=== PATIENT | female | born 1955 | race Caucasian/White ===

== ENCOUNTER 2021-09-11 14:37 | Inpatient (IN) | payer BC, OTHER ==
[~2021-09-11] VITALS: Ht 162.6 cm; Wt 53.5 kg
[2021-09-11 14:37] VITALS: BP_SYST 150
--- NOTE | 2021-09-11 14:43 | NUR ---
Patient to ER bed 02 to gown for evaluation. Side rails up.
[2021-09-11] MEDS ORDERED: IPRATROPIUM BROM 0.5 MG/2.5 ML VIAL.NEB (ATROVENT) INH ONE (15:00)
[2021-09-11] MEDS ORDERED: ALBUTEROL SULFATE 0.083% 2.5 MG/3 ML VIAL.NEB INH ONE (15:00)
--- NOTE | 2021-09-11 15:19 | NUR ---
Sophie [facility] Care nurse Zoe called to verify Phyllis Woodruff in ER . verified.
[2021-09-11 15:21] LABS: BASOPHILS # (AUTO) 0.1 K/uL (0.0-0.2); BASOPHILS % (AUTO) 0.8 % (0.0-2.0); EOSINOPHILS # (AUTO) 0.1 K/uL (0.0-0.4); EOSINOPHILS % (AUTO) 1.3 % (0.0-4.0); HEMATOCRIT 30.9 % (36-48); HEMOGLOBIN 10.5 g/dL (12.0-16.0); LYMPHOCYTES # (AUTO) 2.5 K/uL (1.0-5.5); LYMPHOCYTES % (AUTO) 23.6 % (20.5-51.5); MEAN CORPUSCULAR HEMOGLOBIN 29 pg (27-31); MEAN CORPUSCULAR HGB CONC 34 % (32-36); MEAN CORPUSCULAR VOLUME 85 fL (79.0-98.0); MONOCYTES # (AUTO) 1.1 K/uL (0.0-1.0); MONOCYTES % (AUTO) 10.7 % (1.7-9.3); NEUTROPHILS # (AUTO) 6.8 K/uL (1.8-7.7); NEUTROPHILS % (AUTO) 63.6 % (40.0-70.0); PLATELET COUNT (AUTO) 271 K/uL (130-430); RED BLOOD CELL COUNT(AUTO) 3.64 MIL/uL (4.2-6.2); RED CELL DISTRIBUTION WIDTH 14.8 % (9.0-15.0); WHITE BLOOD COUNT (AUTO) 10.6 K/uL (4.8-10.8)
[2021-09-11 15:41] LABS: ANION GAP 8 (5-15); CALCIUM 8.8 mg/dL (8.4-11.0); CHLORIDE 100 mmol/L (98-107); CREATININE 1.11 mg/dL (0.55-1.30); GLUCOSE 103 mg/dL (70-99); POTASSIUM 3.7 mmol/L (3.5-5.1); SODIUM SERUM 135 mmol/L (136-145); UREA NITROGEN, BLOOD 10 mg/dL (8-21)
--- NOTE | 2021-09-11 15:47 | NUR ---
covid swab done at bedside
[2021-09-11 16:11] LABS: ALANINE AMINOTRANSFERASE 18 U/L (12-78); ALBUMIN 2.7 g/dL (3.4-4.8); ASPARTATE AMINOTRANSFERASE 9 U/L (10-37); TOTAL BILIRUBIN 0.3 mg/dL (0.0-1.0)
[2021-09-11 16:15] LABS: GFR AFRICAN AMERICAN 63 mL/min (>90)
--- NOTE | 2021-09-11 16:33 | NUR ---
Notified ED Admitting regarading Dr. Larios's request for admission/transfer. Per Dr. Larios, pt is stable for transfer. Will contact insurance premium auditor regarding this matter. PER FACESHEET: MINDY OLIVARES
[2021-09-11] MEDS ORDERED: ALPRAZolam 0.25 MG TABLET PO ONE (17:00)
--- NOTE | 2021-09-11 17:37 | NUR ---
MD ordered BC and Levaquin when they are done.
[2021-09-11 17:39] LABS: INR 0.9 (0.8-1.2); PROTHROMBIN TIME 8.9 SECS (9.5-12.5)
--- NOTE | 2021-09-11 17:41 | NUR ---
Pt resting quietly. VSS, xanax helped per patient. Awaiting admission.
--- NOTE | 2021-09-11 17:54 | NUR ---
CB COMMODITY SUPERVISOR CALLED BACK AND STATED WE CAN ADMIT PT AND REQUESTED FAX OF FACESHEET AND CLINICALS. SPOKE TO SISSY FAX: [phone]
--- NOTE | 2021-09-11 17:58 | NUR ---
Dr. Larios called Dr. Mcknight for admission on personal cell
--- NOTE | 2021-09-11 18:40 | NUR ---
Admit bed requested Patient will be admitted to care of . Admitted to MEDSURG unit. Diagnosis COPD EXACERBATION Inpatient (Yes or No) YES Observation (Yes or No) NO Orientation concerns or request close to nursing station (Yes or No) NO Covid Status NEG On vent or bipap NO Isolation requirements NO Needs a sitter NO From Home (Yes or if No enter name of facility) NO Requires Dialysis (Yes or No) NO Med Rec Completed (Yes of No) YES
[2021-09-11] MEDS ORDERED: OLAN2.5T29 PO (18:59)
[2021-09-11] MEDS ORDERED: GUAI600T86 (18:59)
[2021-09-11] MEDS ORDERED: BUDE10.26 IH (18:59)
[2021-09-11] MEDS ORDERED: MULT-1089 PO (19:00)
[2021-09-11] MEDS ORDERED: ENOX40DI8 SQ (19:00)
[2021-09-11] MEDS ORDERED: ALBMDI INH (19:00)
[2021-09-11] MEDS ORDERED: PANT40GR PO (19:00)
[2021-09-11] MEDS ORDERED: BUSP5TAB3 PO (19:00)
[2021-09-11] MEDS ORDERED: INSU100V42 (19:00)
[2021-09-11] MEDS ORDERED: SERT25TA77 PO (19:00)
[2021-09-11] MEDS ORDERED: POLY17PO20 PO (19:00)
--- NOTE | 2021-09-11 19:16 | NUR ---
Report to Rhea DIAZ.
--- NOTE | 2021-09-11 19:21 | NUR ---
Pt A&Ox4,VSS, respirations even and unlabored, cap refill <3.
--- NOTE | 2021-09-11 21:45 | NUR ---
Pt transfered to hospital bed, pt A&Ox4, VSS
--- NOTE | 2021-09-11 21:55 | NUR ---
Report given to Ankit DIAZ
[2021-09-11 22:00] VITALS: BP_SYST 132
[2021-09-11] MEDS ORDERED: DEXTROSE 50% JECT 50 ML DISP.SYRIN IVP PRN (22:00)
[2021-09-11] MEDS ORDERED: BUDESONIDE/FORMOTEROL 160-4.5 mCg, 6 GM INHALER INH SCH (22:00)
[2021-09-11] MEDS ORDERED: methylPREDNISolone SOD SUCC/PF 62.5 MG/ML VIAL IVP SCH (22:00)
[2021-09-11] MEDS ORDERED: BUDESONIDE 0.5 MG/2 ML AMPUL.NEB ONE (22:49)
[2021-09-11] MEDS ORDERED: ONDANSETRON HCL 4 MG/2 ML VIAL IVP PRN (23:00)
[2021-09-11] MEDS ORDERED: NALOXONE HCL 0.4 MG/ML AMP (NARCAN) IVP PRN (23:00)
[2021-09-11] MEDS ORDERED: ACETAMINOPHEN 325 MG TABLET PO PRN (23:00)
[2021-09-12] VITALS (10 sets, daily range): BP systolic 127–178
[2021-09-12] MEDS: TEMAZEPAM 15 MG CAPSULE PO PRN ×3 (00:24→21:52)
[2021-09-12] MEDS: ALBUTEROL SULFATE 0.083% 2.5 MG/3 ML VIAL.NEB INH SCH ×4 (01:00→23:07)
--- NOTE | 2021-09-12 06:47 | NUR ---
NOÉ BAIG (NOTED NEXT OF KIN IN PATIENT DATA) CALLED. ADV PATIENT IS ADMTED.
[2021-09-12 06:54] LABS: BASOPHILS % (AUTO) 0.3 % (0.0-2.0); EOSINOPHILS % (AUTO) 0.3 % (0.0-4.0); HEMATOCRIT 30.9 % (36-48); HEMOGLOBIN 10.6 g/dL (12.0-16.0); LYMPHOCYTES # (AUTO) 0.5 K/uL (1.0-5.5); LYMPHOCYTES % (AUTO) 4.5 % (20.5-51.5); MEAN CORPUSCULAR HEMOGLOBIN 29 pg (27-31); MEAN CORPUSCULAR HGB CONC 34 % (32-36); MEAN CORPUSCULAR VOLUME 85 fL (79.0-98.0); MONOCYTES # (AUTO) 0.2 K/uL (0.0-1.0); MONOCYTES % (AUTO) 1.5 % (1.7-9.3); NEUTROPHILS # (AUTO) 9.9 K/uL (1.8-7.7); NEUTROPHILS % (AUTO) 93.4 % (40.0-70.0); PLATELET COUNT (AUTO) 278 K/uL (130-430); RED BLOOD CELL COUNT(AUTO) 3.64 MIL/uL (4.2-6.2); RED CELL DISTRIBUTION WIDTH 14.6 % (9.0-15.0); WHITE BLOOD COUNT (AUTO) 10.6 K/uL (4.8-10.8)
[2021-09-12] MEDS: busPIRone HCL 5 MG TABLET PO SCH ×3 (07:00→16:06)
[2021-09-12 07:06] LABS: TOTAL IRON BIND. CAPACITY 279 ug/dL (250-450)
[2021-09-12 07:11] LABS: CREATININE 0.7 mg/dL (0.55-1.30); POTASSIUM 4.1 mmol/L (3.5-5.1)
--- NOTE | 2021-09-12 08:21 | NUR ---
I had the patient yesterday, and she recognized me. Happy that she was able to get a room with a tv. Explained that we were still waiting for a room in the hospital. Patient has an adjustable hospital bed. Denies any pain. Noted to have slight wheezes prior to RT treatment. Patient let me know that she had to go to the bathroom- unhooked patient from the monitor and was able to ambulate to the bathroom: gait steady, no problems noted. Will continue to monitor.
[2021-09-12] MEDS ORDERED: INSULIN REGULAR, HUMAN 10 UNITS/0.1 ML INJ ONE (08:40)
[2021-09-12] MEDS: INSULIN REGULAR, HUMAN 100 UNITS/ML, 10 ML VIAL (humuLIN R) SUBCUT PRN ×2 (08:41→20:23)
--- NOTE | 2021-09-12 08:49 | NUR ---
Patient given mechanical soft diet. Tolerating it well.
[2021-09-12] MEDS ORDERED: PANTOPRAZOLE GRANULES PACKET 40 MG PO SCH (09:00)
[2021-09-12] MEDS: POLYETHYLENE GLYCOL 3350, 17 GM/ POWD.PACK PO SCH (09:00)
[2021-09-12] MEDS ORDERED: MULTIVITAMINS TAB 1 TABLET PO SCH (09:00)
--- NOTE | 2021-09-12 09:16 | NUR ---
Dr. Mcknight at bedside with patient. Stated that she looked better.
[2021-09-12] MEDS: BUDESONIDE 0.5 MG/2 ML AMPUL.NEB INH SCH ×2 (09:17→23:07)
[2021-09-12] MEDS ORDERED: ONDANSETRON HCL 4 MG/2 ML VIAL ONE (09:56)
[2021-09-12] MEDS: LACTOBACILLUS RHAMNOSUS GG 1 CAP CAPSULE PO SCH ×2 (10:48→20:12)
[2021-09-12] MEDS: guaiFENesin ER 600 MG TAB PO SCH ×2 (10:49→20:12)
[2021-09-12] MEDS: PANTOPRAZOLE SODIUM 40 MG TAB PO SCH (10:50)
[2021-09-12] MEDS: MULTIVITS,CA,MINERALS/IRON/FA 1 TABLET PO SCH (10:52)
[2021-09-12] MEDS: CHOLECALCIFEROL (VITAMIN D3) 2,000 UNIT TABLET PO SCH (10:53)
[2021-09-12] MEDS: SERTRALINE HCL 50 MG TABLET PO SCH (10:54)
[2021-09-12] MEDS: OLANZapine 2.5 MG TABLET PO SCH ×2 (10:54→20:12)
[2021-09-12] MEDS: METHYLPREDNISOLONE SOD SUCC 40 MG/ML VIAL IVP SCH ×2 (10:55→20:13)
[2021-09-12] MEDS: SOD FERRIC GLUC COMPLEX/SUC 125 MG in NS 100 ML IV SCH (11:21)
[2021-09-12] MEDS: ENOXAPARIN SODIUM 40 MG/0.4 ML SYRINGE SQ SCH (11:24)
[2021-09-12] MEDS ORDERED: ALBUTEROL SULFATE 0.083% 2.5 MG/3 ML VIAL.NEB INH ONE ×3 (12:33→12:49)
[2021-09-12] MEDS ORDERED: IPRATROPIUM BROM 0.5 MG/2.5 ML VIAL.NEB (ATROVENT) INH ONE ×2 (12:45→12:50)
[2021-09-12] MEDS ORDERED: METHYLPREDNISOLONE SOD SUCC 40 MG/ML VIAL IVP ONE (12:45)
--- NOTE | 2021-09-12 12:45 | NUR ---
MD aware that patient working harder to breath- RT aware. Spoke c MD- at bedside. Told RT that we needed to start Bipap and continious albuterol treatment.
--- NOTE | 2021-09-12 12:52 | NUR ---
Rhea DIAZ aware that pt will be upgraded to ICU.
--- NOTE | 2021-09-12 12:59 | NUR ---
Bipap 10/5 30% Rate 20
[2021-09-12] MEDS ORDERED: NACL 0.9% 1,000 ML IV ONE (13:00)
--- NOTE | 2021-09-12 13:04 | NUR ---
RESPIRATORY NOTES. @1225 PT WAS SOB DUE TO USING THE RESTROOM. AFTER MEDICATION WAS GIVEN TO PT, SHE WAS STILL HAVING SOB. DR. CARDONA GAVE ORDERS FOR FOLLOW UP BREATHING TX AND TO PUT PT ON BIPAP. PT IS ON BIPAP 12/01 RATE 20 30%. WILL CONTINUE TO MONITOR. Addendum: 09/12/21 at 1316 by Carol Babcock RT Amended: Links added.
[2021-09-12] MEDS ORDERED: methylPREDNISolone SOD SUCC/PF 62.5 MG/ML VIAL ONE (13:08)
--- NOTE | 2021-09-12 14:50 | NUR ---
RECEIVED PT FROM ED
--- NOTE | 2021-09-12 15:18 | NUR ---
SPOKE WITH DR HERNANDEZ ADVISED ON BIPAP: IPAP AT 10 EPAP AT 5 30% FI02 AND SATTING 96%. ORDERED ABG.
--- NOTE | 2021-09-12 15:23 | NUR ---
Called Dr. Ibrahim with a consult, he is aware.
--- NOTE | 2021-09-12 16:19 | NUR ---
SPOKE WITH DR HERNANDEZ. ADVISED ABG RESULTS: PH 7.515, C02 29.8, P02 87.1, HC03 23.5 OXYGEN SAT 97.3 AND SBP IN 170'S AND HR IN 115'S. ORDERED TO D/C BIPAP, PLACE ON OXYMIZER AT 6LPM AND THEN TO TITRATE DOWN TO 3LPM. RT HAS BEEN ADVISED. ALSO ORDERED CLONIDINE 0.1 MG PO Q6HRS PRN FOR SBP >150.
--- NOTE | 2021-09-12 16:49 | NUR ---
1645 PLACED PT ON 6L OXYMIZER PER DR BULLARD. SAT96% HR 96 RR18, WILL CONT TO GOPAL. Addendum: 09/12/21 at 1650 by Brianna Jang RT Amended: Links added.
[2021-09-12] MEDS: HYDROcodone/ACETAMIN 5-325 MG TAB (NORCO/ VICODIN) PO PRN (17:12)
[2021-09-12] MEDS: cloNIDine HCL 0.1 MG TABLET PO PRN (17:36)
[2021-09-12] MEDS: LEVOFLOXACIN 250 MG/D5W 100 ML IV SCH (18:00)
[2021-09-12] MEDS ORDERED: IPRATROPIUM/ALBUTEROL SULFATE 3 ML AMPUL.NEB (DUONEB) INH SCH (19:15)
[2021-09-13] VITALS (23 sets, daily range): BP systolic 99–183
[2021-09-13] MEDS: busPIRone HCL 5 MG TABLET PO SCH ×3 (05:32→17:08)
[2021-09-13 06:53] LABS: BASOPHILS % (AUTO) 0.2 % (0.0-2.0); HEMATOCRIT 27.9 % (36-48); HEMOGLOBIN 9.8 g/dL (12.0-16.0); LYMPHOCYTES # (AUTO) 0.7 K/uL (1.0-5.5); LYMPHOCYTES % (AUTO) 6.4 % (20.5-51.5); MEAN CORPUSCULAR HEMOGLOBIN 30 pg (27-31); MEAN CORPUSCULAR HGB CONC 35 % (32-36); MEAN CORPUSCULAR VOLUME 84 fL (79.0-98.0); MONOCYTES # (AUTO) 0.6 K/uL (0.0-1.0); MONOCYTES % (AUTO) 5.4 % (1.7-9.3); NEUTROPHILS # (AUTO) 10.1 K/uL (1.8-7.7); PLATELET COUNT (AUTO) 295 K/uL (130-430); RED BLOOD CELL COUNT(AUTO) 3.32 MIL/uL (4.2-6.2); RED CELL DISTRIBUTION WIDTH 14.7 % (9.0-15.0); WHITE BLOOD COUNT (AUTO) 11.5 K/uL (4.8-10.8)
[2021-09-13 06:56] LABS: CALCIUM 8.9 mg/dL (8.4-11.0); CREATININE 0.58 mg/dL (0.55-1.30); POTASSIUM 4.2 mmol/L (3.5-5.1)
--- NOTE | 2021-09-13 08:00 | NUR ---
AM ASSESSMENT PT ALERT, ABLE TO EXPRESS BASIC NEEDS, ASSISTED TO THE COMMODE, PERINEAL WIPES PROVIDED, PT HAD A BOWEL MOVEMENT. LED BACK TO THE BED. ATTEMPTED TO FLUSH SALINE LOCK IN RIGHT HAND, IV LEAKED OUT AND D/CD. NEW IV INSERTED INTO RIGHT FOREARM USING 22 GAUGE CATHETER WITH GOOD BLOOD RETURN.
[2021-09-13] MEDS: IPRATROPIUM/ALBUTEROL SULFATE 3 ML AMPUL.NEB (DUONEB) INH SCH ×4 (08:08→19:57)
[2021-09-13] MEDS: BUDESONIDE 0.5 MG/2 ML AMPUL.NEB INH SCH ×2 (08:08→19:57)
[2021-09-13] MEDS: ALBUTEROL SULFATE 0.083% 2.5 MG/3 ML VIAL.NEB INH SCH ×2 (08:13→14:10)
[2021-09-13] MEDS: ENOXAPARIN SODIUM 40 MG/0.4 ML SYRINGE SQ SCH (08:33)
[2021-09-13] MEDS: guaiFENesin ER 600 MG TAB PO SCH ×2 (08:34→21:23)
[2021-09-13] MEDS: METHYLPREDNISOLONE SOD SUCC 40 MG/ML VIAL IVP SCH ×4 (08:34→21:24)
[2021-09-13] MEDS: MULTIVITS,CA,MINERALS/IRON/FA 1 TABLET PO SCH (08:34)
[2021-09-13] MEDS: SERTRALINE HCL 50 MG TABLET PO SCH (08:34)
[2021-09-13] MEDS: LACTOBACILLUS RHAMNOSUS GG 1 CAP CAPSULE PO SCH ×2 (08:34→21:23)
[2021-09-13] MEDS: PANTOPRAZOLE SODIUM 40 MG TAB PO SCH (08:35)
[2021-09-13] MEDS: OLANZapine 2.5 MG TABLET PO SCH ×2 (08:35→21:23)
[2021-09-13] MEDS: CHOLECALCIFEROL (VITAMIN D3) 2,000 UNIT TABLET PO SCH (08:35)
[2021-09-13] MEDS: POLYETHYLENE GLYCOL 3350, 17 GM/ POWD.PACK PO SCH (08:35)
[2021-09-13] MEDS: SOD FERRIC GLUC COMPLEX/SUC 125 MG in NS 100 ML IV SCH (09:25)
[2021-09-13] MEDS: HYDROcodone/ACETAMIN 5-325 MG TAB (NORCO/ VICODIN) PO PRN (09:26)
[2021-09-13] MEDS ORDERED: DOCUSATE SODIUM 100 MG CAPSULE PO ONE (10:45)
--- NOTE | 2021-09-13 12:05 | NUR ---
MONITORING ANALYST WALDEMAR Mota responded to a generated social service support referral. SLURRY MIXER consulted with assigned COPYWRITER Kayley who shared patients caregiver Noé is requesting information/resources for additional caregiving support. SLURRY MIXER Svetlana met with patient at bedside. Patient was awake, alert and oriented to self but unable to state place and time SLURRY MIXER completed introductions, reason for referral and provided business card. Patient was open to contact. SLURRY MIXER made attempts to engage patient, but when SLURRY MIXER posed questions patient would say I dont remember. Patient was not oriented to place and when SLURRY MIXER informed her of facility she was not able to remember how she arrived at facility, nor was she able to recall being placed in [facility]. Patient shared she was a smoker and smoked about a pack a week. She also expressed feeling anxious at this time. Patient requested that SLURRY MIXER contact roommate Noé to obtain information because she cant remember, and he helps me with everything I need. CONTACT WITH PATIENTS CONTACT NOÉ BECKER SLURRY MIXER Svetlana contacted patients roommate Noé. He shares patient does have an adult son, Angel, but he shared holds Power of Electronics Hardware Design Engineer for patient. He has been living in Patients home and supporting her for 7 years. Current concern- Noé expressed difficulties with caring for patient due to her getting worse. He is requesting resource for caregivers and/or assisted living. Income- Patient currently receives SSI of about $2,400 a month. Noé states he feels patient may benefit for additional caregiving or placement in assisted living due to her increasing memory impairments. According to Noé, patient has not smoked for 2 years. He provides transportation and coordinates all of patients healthcare needs at this time. Noé confirmed patient was placed in [facility] prior to admission to this facility, but does not want to her to return due to running a scam on us for the past 2 months. According to him, they were not informed of COVID outbreak and he is concerned due to her history of COPD. SLURRY MIXER requested POA documents and provided fax number to Noé Plan- SLURRY MIXER will provide resources for assisted living and caregivers at patients bedside
[2021-09-13] MEDS: LORazepam 1 MG TABLET PO PRN (13:47)
--- NOTE | 2021-09-13 14:31 | NUR ---
Pt calling very frequently for caffeine, tea, coffee. She has had approximately 10 cups since this AM. She has been complaining of increasing anxiety for the past hour. Pt was recently medicated with Ativan. She is calling and asking for more anxiety medication. I informed the pt that all her coffee and tea is not helping her feelings of anxiety. She told me she has been requesting decaffeinated drinks. I informed her I am the one that has been answering her call light all day and not once has she said decaf. I suggested she stop drinking tea/coffee for today to see if that helps and we will switch her drinks to decalf. ST on monitor 107 BP 146/71, RR 30 and 02 sats 94% on oxygen. Pt is agreeable to the plan.
[2021-09-13] MEDS: INSULIN REGULAR, HUMAN 100 UNITS/ML, 10 ML VIAL (humuLIN R) SUBCUT PRN ×2 (17:25→21:34)
--- NOTE | 2021-09-13 17:43 | NUR ---
Pt calling to use BSC. Pt is confused and SOB. Didn't listen to request to stay in bed and scrambled to BSC. Pt touching urine soaked sheets with her fingers after being asked not to and then wiping her face with her fingers. Stands up from BSC and attempts to help make the bed and requested to sit back down on the BSC. Audible wheezing heard while standing at bedside. RR 34 HR 133. 02 sats 94%. Bedside RN came into the room with vein finder to start another IV after pt was settled back into bed.
--- NOTE | 2021-09-13 17:45 | NUR ---
IV SALINE LOCK IN RIGHT FOREARM D/CD, SITE SWOLLEN. NEW IV INSERTED INTO RIGHT HAND, 22 GAUGE CATHETER, GOOD BLOOD RETURN NOTED.
[2021-09-13] MEDS: LEVOFLOXACIN 250 MG/D5W 100 ML IV SCH (18:11)
[2021-09-13] MEDS: cloNIDine HCL 0.1 MG TABLET PO PRN (18:18)
[2021-09-13] MEDS: TEMAZEPAM 15 MG CAPSULE PO PRN (21:23)
[2021-09-14] VITALS: BP_SYST 127
[2021-09-14] MEDS: IPRATROPIUM/ALBUTEROL SULFATE 3 ML AMPUL.NEB (DUONEB) INH SCH ×7 (01:00→19:46)
--- NOTE | 2021-09-14 04:00 | NUR ---
OPENING NOTE PT AOX2 ABLE TO EXPRESS BASIC NEEDS. PT ON OXYMIZER AT 3L AND ON TELE. TELE IS SR TO ST WITH OCC PVC. IV RIGHT FOREARM USING 22 G PATENT AND FLUSH. PT ORIENTED TO UNIT AND ALL SAFETY PRECAUTIONS ARE IN PLACE. PT ANXIOUS ABOUT THE MOVE FROM ICU TO TELE.
--- NOTE | 2021-09-14 04:15 | NUR ---
ATIVAN PT STILL C/O ANXIETY AND PRN WAS GIVEN TO HELP
--- NOTE | 2021-09-14 04:15 | NUR ---
SOB/ANXIETY PT WAS ON OXYMIZER AT 3L AND WITH INCREASE ANXIETY PT IS FEELING SOB. RESP CALLED AND OXYMIZER INCREASED TO 5L
--- NOTE | 2021-09-14 05:00 | NUR ---
MUKESH PT GIVEN BUSOLVIN @ 0500 C/O OF ANXIETY AND REORTS THAT SHE TAKES THE MEDICATION NEEDED AT HOME.
[2021-09-14] MEDS: METHYLPREDNISOLONE SOD SUCC 40 MG/ML VIAL IVP SCH ×4 (05:19→22:45)
[2021-09-14] MEDS: busPIRone HCL 5 MG TABLET PO SCH ×3 (05:22→16:40)
--- NOTE | 2021-09-14 05:30 | NUR ---
ANXIETY PT REPORT STILL HAVING ANXIETY AND REQUESTED HER BUSPAR. BUSPAR WAS GIVEN
[2021-09-14] MEDS ORDERED: COMMUNICATION ORDER XX ONE (05:45)
--- NOTE | 2021-09-14 06:00 | NUR ---
BLOOD SUGAR BS WAS 147 PT REQUIRED NO COVERAGE
--- NOTE | 2021-09-14 07:15 | NUR ---
OPENING NOTE RECEIVED SBAR FROM NIGHT RN, PATIENT IN BED, RESPIRATIONS EVEN, NON LABORED, BED IN LOW AND LOCKED POSITION, CALL LIGHT WITHIN REACH, BED ALARM ON
[2021-09-14 08:00] VITALS: BP_SYST 146
[2021-09-14] MEDS: BUDESONIDE 0.5 MG/2 ML AMPUL.NEB INH SCH ×2 (09:03→19:46)
[2021-09-14] MEDS: POLYETHYLENE GLYCOL 3350, 17 GM/ POWD.PACK PO SCH (09:43)
[2021-09-14] MEDS: ENOXAPARIN SODIUM 40 MG/0.4 ML SYRINGE SQ SCH (09:43)
[2021-09-14] MEDS: OLANZapine 2.5 MG TABLET PO SCH ×2 (09:44→20:44)
[2021-09-14] MEDS: SERTRALINE HCL 50 MG TABLET PO SCH (09:44)
[2021-09-14] MEDS: MULTIVITS,CA,MINERALS/IRON/FA 1 TABLET PO SCH (09:44)
[2021-09-14] MEDS: DOCUSATE SODIUM 100 MG CAPSULE PO SCH (09:45)
[2021-09-14] MEDS: CHOLECALCIFEROL (VITAMIN D3) 2,000 UNIT TABLET PO SCH (09:45)
[2021-09-14] MEDS: LACTOBACILLUS RHAMNOSUS GG 1 CAP CAPSULE PO SCH ×2 (09:45→20:44)
[2021-09-14] MEDS: guaiFENesin ER 600 MG TAB PO SCH ×2 (09:45→20:43)
[2021-09-14] MEDS: PANTOPRAZOLE SODIUM 40 MG TAB PO SCH (09:45)
[2021-09-14] MEDS: SOD FERRIC GLUC COMPLEX/SUC 125 MG in NS 100 ML IV SCH (09:47)
--- NOTE | 2021-09-14 09:52 | NUR ---
MEDICAL RESEARCH ASSOCIATE WALDEMAR Mota received POA documents via fax from patient's roommate/ROSALIE Engle. Addendum: 09/14/21 at 1149 by Svetlana MEDEIROS WALDEMAR Mota received a call from ROSALIE Henderson . Current concern- According to Santiago, the patient "needs skills nursing placement". He shared patient has been "in and out of these places for the last 3 months and has only been home 2 or 3 days". WALDEMAR provided a brief explanation of Skilled Needs, and informed him there was not currently a discharge order. Santiago also again expressed not wanting patient to return to [facility] and to placed closer to home in [place], but expressed an understanding of the impact of patient's current insurance on placement. WALDEMAR Mota provided Santiago with extension to nurses station and case management for additional questions.
[2021-09-14] MEDS: HYDROcodone/ACETAMIN 5-325 MG TAB (NORCO/ VICODIN) PO PRN ×3 (10:38→20:44)
[2021-09-14 11:27] VITALS: BP_SYST 146
[2021-09-14 11:28] VITALS: BP_SYST 149
--- NOTE | 2021-09-14 11:52 | NUR ---
AERIAL GUNNER SUPERINTENDENT WALDEMAR Mota emailed admitting to request update to patient's address to reflect the following; [address] [place] [address]
[2021-09-14] MEDS: LORazepam 1 MG TABLET PO PRN ×2 (12:06→21:30)
--- NOTE | 2021-09-14 12:52 | NUR ---
ROSALIE SPOKE WITH ROSALIE UMANZOR, PATIENT IS ON O2 NASAL CANNULA 2L
[2021-09-14 15:59] VITALS: BP_SYST 165
[2021-09-14] MEDS: INSULIN REGULAR, HUMAN 100 UNITS/ML, 10 ML VIAL (humuLIN R) SUBCUT PRN (16:47)
--- NOTE | 2021-09-14 17:15 | NUR ---
NURSE NOTE PATIENT COMPLAINED OF BACK PAIN, REQUESTED MEDICATION. REPOSITIONED PATIENT
[2021-09-14] MEDS: LEVOFLOXACIN 250 MG/D5W 100 ML IV SCH (17:56)
--- NOTE | 2021-09-14 19:05 | NUR ---
CLOSING NOTE PROVIDED SBAR TO NIGHT RN, PATIENT IN BED, RESPIRATIONS EVEN, NON LABORED, BED IN LOW AND LOCKED POSITION, CALL LIGHT WITHIN REACH, BED ALARM ON.
[2021-09-14 20:00] VITALS: BP_SYST 168
--- NOTE | 2021-09-14 20:00 | NUR ---
OPENING NOTE PT AOX2 OR 3 ABLE TO EXPRESS BASIC NEEDS. PT EXPRESSED HIGH ANXIETY AND FEELING UNABLE TO BREATH. PT STA'S WERE 94%. RT WAS CALLED FOR HHN TX. PT ON OXYMIZER AT 5L AND ON TELE. TELE IS SR TO ST WITH OCC PVC. IV RIGHT FOREARM USING 22 G PATENT AND FLUSH. PT ORIENTED TO UNIT AND ALL SAFETY PRECAUTIONS ARE IN PLACE.
[2021-09-14] MEDS: TEMAZEPAM 15 MG CAPSULE PO PRN (20:43)
[2021-09-14] MEDS: cloNIDine HCL 0.1 MG TABLET PO PRN (20:45)
--- NOTE | 2021-09-14 21:30 | NUR ---
ANXIETY PT C/O OF ANXIETY AND ATIVAN WAS GIVEN
--- NOTE | 2021-09-14 21:45 | NUR ---
EFREM SUGAR PT REFUSED TO HAVE BS TAKEN PT REPEATED " YOU JUST DID THAT" ATTEMPTED TO TELL PT THAT WAS HER 1800 BEFORE DINNER. PT STILL REFUSED
--- NOTE | 2021-09-14 22:30 | NUR ---
C/O OF NEEDING SLEEP MEDICATION PT WAS GIVEN HER RESTORIL FOR SLEEP
[2021-09-15] VITALS: BP_SYST 141
[2021-09-15] MEDS: IPRATROPIUM/ALBUTEROL SULFATE 3 ML AMPUL.NEB (DUONEB) INH SCH ×5 (00:16→14:41)
--- NOTE | 2021-09-15 01:00 | NUR ---
ALOC DECREASE PT IS MORE CONFUSED. PT BELIEVES IT IS 2000 AND THAT HER DAUGHTER IS IN HIGH SCHOOL. PT CONTINUES TO USE THE CALL LIGHT TO REQUEST ANXIETY MEDICATION AND SLEEPING MEDICATIONS THAT SHE HAS ALREADY HAD. THE PT DID NOT REMEBER THAT I WAS HER NURSE SO I REINTRODUCED MYSELF AGAIN TOT HE PT.
[2021-09-15] MEDS: METHYLPREDNISOLONE SOD SUCC 40 MG/ML VIAL IVP SCH ×4 (04:58→21:11)
[2021-09-15] MEDS: busPIRone HCL 5 MG TABLET PO SCH ×3 (04:59→16:59)
--- NOTE | 2021-09-15 06:00 | NUR ---
BLOOD SUGAR PT'S BS WAS 89 PT WAS ENCOURAGED TO EAT A JUDY CRACKER.
--- NOTE | 2021-09-15 07:15 | NUR ---
RECEIVED REPORT FROM ENDORSING DIRECTOR AERONAUTICS COMMISSION RN FOR CONTINUITY OF CARE, PATIENT LYING ON BED ON OXYMIZER AT 5L, PATIENT IS AWAKE, NO SIGNS OF ACUTE DISTRESS NOTED AT THIS TIME,PATIENT VITAL SIGNS BLOOD PRESSURE 182/94, HEART RATE 113, TEMPERATURE 97.4 OXYGEN SATURATION ON 99%. WILL CONTINUE TO MONITOR.
[2021-09-15] MEDS: BUDESONIDE 0.5 MG/2 ML AMPUL.NEB INH SCH (08:02)
[2021-09-15] MEDS: cloNIDine HCL 0.1 MG TABLET PO PRN ×2 (08:35→21:12)
[2021-09-15] MEDS: LORazepam 1 MG TABLET PO PRN ×3 (08:39→21:14)
[2021-09-15] MEDS: DOCUSATE SODIUM 100 MG CAPSULE PO SCH (08:40)
[2021-09-15] MEDS: MULTIVITS,CA,MINERALS/IRON/FA 1 TABLET PO SCH (08:40)
[2021-09-15] MEDS: CHOLECALCIFEROL (VITAMIN D3) 2,000 UNIT TABLET PO SCH (08:40)
[2021-09-15] MEDS: SERTRALINE HCL 50 MG TABLET PO SCH (08:40)
[2021-09-15] MEDS: LACTOBACILLUS RHAMNOSUS GG 1 CAP CAPSULE PO SCH ×2 (08:41→21:12)
[2021-09-15] MEDS: guaiFENesin ER 600 MG TAB PO SCH ×2 (08:41→21:12)
[2021-09-15] MEDS: OLANZapine 2.5 MG TABLET PO SCH ×2 (08:49→21:12)
[2021-09-15] MEDS: POLYETHYLENE GLYCOL 3350, 17 GM/ POWD.PACK PO SCH (08:50)
[2021-09-15] MEDS: PANTOPRAZOLE SODIUM 40 MG TAB PO SCH (08:50)
[2021-09-15] MEDS: ENOXAPARIN SODIUM 40 MG/0.4 ML SYRINGE SQ SCH (08:52)
--- NOTE | 2021-09-15 11:34 | NUR ---
CHECKED PATIENT BLOOD SUGAR @1134 BLOOD SUGAR 118, NO INSULIN COVERAGE PER SLIDING SCALE.
[2021-09-15 12:31] VITALS: BP_SYST 141
[2021-09-15] MEDS: traMADol HCL HCL 50 MG TABLET (ULTRAM) PO PRN (12:50)
[2021-09-15] MEDS: HYDROcodone/ACETAMIN 5-325 MG TAB (NORCO/ VICODIN) PO PRN (15:21)
[2021-09-15 16:19] VITALS: BP_SYST 137
--- NOTE | 2021-09-15 16:39 | NUR ---
FOR SPUTUM CULTURES;SPECIMEN BOTTLE PROVIDED TO THE PATIENT.
--- NOTE | 2021-09-15 17:14 | NUR ---
PT BLOOD SUGAR 154, 2 UNITS OF REGULAR INSULIN GIVEN PER SLIDING SCALE.
[2021-09-15] MEDS: INSULIN REGULAR, HUMAN 100 UNITS/ML, 10 ML VIAL (humuLIN R) SUBCUT PRN (17:20)
[2021-09-15] MEDS: LEVOFLOXACIN 250 MG/D5W 100 ML IV SCH (17:47)
[2021-09-15 20:00] VITALS: BP_SYST 151
--- NOTE | 2021-09-15 20:00 | NUR ---
OPENING NOTE UPON ENTERING THE ROOM PT WAS TALKING TO HER SELF. PT AOX1 AND ABLE TO EXPRESS BASIC NEEDS. PT EXPRESSED HIGH ANXIETY AND FEELING UNABLE TO BREATH. PT STATES WERE 94%. RT WAS CALLED FOR HHN TX. PT BELIEVE IR IS 2000 AND SHE STILL LIVES IN HER HOUSE. ASKED PT IF SHE HAS EVER HAD DIAGNOSIS OF SCHIZOPHRENIA. PT STATED SHE HAD THAT BEFORE BUT IT'S ALL GONE KNOW. PT ON OXYMIZER AT 5L AND ON TELE. TELE IS SR TO ST WITH OCC PVC. IV L WRIST 22 G PATENT AND FLUSH. ALL SAFETY PRECAUTIONS ARE IN PLACE.
--- NOTE | 2021-09-15 21:05 | NUR ---
BLOOD SUGAR PT REFUSED TO HAVE BS TAKEN PT REPEATED " YOU JUST DID THAT" ATTEMPTED TO TELL PT THAT WAS HER 1800 BEFORE DINNER. PT STILL REFUSED
[2021-09-15] MEDS: TEMAZEPAM 15 MG CAPSULE PO PRN (21:13)
--- NOTE | 2021-09-15 21:30 | NUR ---
ANXIETY PT C/O OF ANXIETY AND ATIVAN WAS GIVEN WITH GOOD RESULTS
--- NOTE | 2021-09-15 21:35 | NUR ---
C/O OF NEEDING SLEEP MEDICATION PT REPORTS SHE DOES NOT SLEEP WELL AND NEEDS HER SLEEP MEDICATION. PT WAS GIVEN HER RESTORIL FOR SLEEP
--- NOTE | 2021-09-15 21:45 | NUR ---
REQUEST SLEEPING MEDICATION EXPLAINED TO P THAT SHE ALREADY HAD GOTTEN HER SLEEP MEDICATION AND PT DID NOT REMEMBER TAKING THE MEDICATION AND DID NOT REMEMBER THAT THIS NURSE GAVE IT TO HER. THIS RE INTRODUCED HERSELF TO PT.
[2021-09-16 00:12] VITALS: BP_SYST 114
--- NOTE | 2021-09-16 00:20 | NUR ---
RECIEVED REPORT FROM PM RN, PT IS RESTING COMFORTABLY IN BED AFTER MEDICATION PT GIVEN BREATHING TX, AND PT TOLERATING. PT IS VERY FORGETFUL. PT OVER ESTIMATES ABILITIES. WILL CONTINUE TO MONITOR, AND REASSESS AFTER TREATMENT.
[2021-09-16] MEDS: IPRATROPIUM/ALBUTEROL SULFATE 3 ML AMPUL.NEB (DUONEB) INH SCH ×5 (00:45→19:45)
[2021-09-16] MEDS: BUDESONIDE 0.5 MG/2 ML AMPUL.NEB INH SCH ×3 (00:46→19:46)
[2021-09-16] MEDS: IPRATROPIUM/ALBUTEROL SULFATE 3 ML AMPUL.NEB (DUONEB) INH PRN ×2 (03:57→11:11)
[2021-09-16] MEDS: busPIRone HCL 5 MG TABLET PO SCH ×3 (06:16→16:59)
--- NOTE | 2021-09-16 07:14 | NUR ---
PHYSICAL THERAPY CO-SIGN The Physical Therapy Progress Notes documented by Safety Administrator have been reviewed. Reviewed/Co-Signed by: Lewis Yañez Documentation Done by: KARLY DEL ANGEL PTA Addendum: 09/16/21 at 0715 by Lewis Yañez PT Amended: Links added.
[2021-09-16 08:00] VITALS: BP_SYST 164
[2021-09-16] MEDS: DOCUSATE SODIUM 100 MG CAPSULE PO SCH (09:55)
[2021-09-16] MEDS: PANTOPRAZOLE SODIUM 40 MG TAB PO SCH (09:55)
[2021-09-16] MEDS: OLANZapine 2.5 MG TABLET PO SCH ×2 (09:55→20:33)
[2021-09-16] MEDS: guaiFENesin ER 600 MG TAB PO SCH ×2 (09:56→20:33)
[2021-09-16] MEDS: SERTRALINE HCL 50 MG TABLET PO SCH (09:56)
[2021-09-16] MEDS: POLYETHYLENE GLYCOL 3350, 17 GM/ POWD.PACK PO SCH (09:57)
[2021-09-16] MEDS: MULTIVITS,CA,MINERALS/IRON/FA 1 TABLET PO SCH (09:57)
[2021-09-16] MEDS: LACTOBACILLUS RHAMNOSUS GG 1 CAP CAPSULE PO SCH ×2 (09:57→20:33)
[2021-09-16] MEDS: CHOLECALCIFEROL (VITAMIN D3) 2,000 UNIT TABLET PO SCH (09:57)
[2021-09-16] MEDS: METHYLPREDNISOLONE SOD SUCC 40 MG/ML VIAL IVP SCH (09:58)
[2021-09-16] MEDS: ENOXAPARIN SODIUM 40 MG/0.4 ML SYRINGE SQ SCH (09:59)
[2021-09-16] MEDS: LORazepam 1 MG TABLET PO PRN ×2 (10:29→17:54)
--- NOTE | 2021-09-16 10:51 | NUR ---
Discharge Planning: DCP faxed to [facility] [phone] DCP to follow up
--- NOTE | 2021-09-16 11:31 | NUR ---
blood sugar 126 no insulin coverage per sliding scale.
[2021-09-16 12:00] VITALS: BP_SYST 143
[2021-09-16] MEDS ORDERED: LORA-259 PO (12:20)
[2021-09-16] MEDS ORDERED: DOCU-144 PO (12:20)
[2021-09-16] MEDS ORDERED: BUDE0.5A INH (12:20)
[2021-09-16] MEDS ORDERED: ACET325T PO (12:20)
[2021-09-16] MEDS ORDERED: SSREG SUBCUT (12:20)
[2021-09-16] MEDS ORDERED: IPRA3AMP9 INH ×2 (12:20)
[2021-09-16] MEDS ORDERED: MULT-1145 PO (12:20)
[2021-09-16] MEDS ORDERED: TEMA15CA5 PO (12:20)
[2021-09-16] MEDS ORDERED: VITD2000 PO (12:20)
[2021-09-16] MEDS ORDERED: LEVO250T43 PO (12:22)
[2021-09-16] MEDS ORDERED: predniSONE 20 MG TABLET PO ONE (12:30)
[2021-09-16] MEDS: HYDROcodone/ACETAMIN 5-325 MG TAB (NORCO/ VICODIN) PO PRN (15:41)
[2021-09-16 16:00] VITALS: BP_SYST 140
--- NOTE | 2021-09-16 16:24 | NUR ---
Dietitian Recommendations * Continue Mechanical soft diet * Encourage increase PO intakes * Consider Ensure Enlive ONS if PO intakes declines LP, RD Please refer to Nutrition Assessment for details. Addendum: 09/16/21 at [address] Amended: Links added.
--- NOTE | 2021-09-16 17:07 | NUR ---
checked blood sugar 248 , 4 units of regular given per sliding scale.
[2021-09-16] MEDS: INSULIN REGULAR, HUMAN 100 UNITS/ML, 10 ML VIAL (humuLIN R) SUBCUT PRN (17:12)
[2021-09-16] MEDS: LEVOFLOXACIN 250 MG/D5W 100 ML IV SCH (17:55)
[2021-09-16 20:00] VITALS: BP_SYST 135
[2021-09-16] MEDS: predniSONE 20 MG TABLET PO SCH (20:33)
[2021-09-16] MEDS: TEMAZEPAM 15 MG CAPSULE PO PRN (20:43)
--- NOTE | 2021-09-16 22:34 | NUR ---
Patient in bed. No acute distress noted. Assisted patient to the bathroom. Will continue to monitor.
[2021-09-17] MEDS: busPIRone HCL 5 MG TABLET PO SCH ×3 (06:02→17:37)
[2021-09-17] MEDS: BUDESONIDE 0.5 MG/2 ML AMPUL.NEB INH SCH (07:00)
[2021-09-17] MEDS: IPRATROPIUM/ALBUTEROL SULFATE 3 ML AMPUL.NEB (DUONEB) INH SCH ×2 (07:54→13:00)
[2021-09-17 08:00] VITALS: BP_SYST 145
--- NOTE | 2021-09-17 09:07 | NUR ---
PHYSICAL THERAPY CO-SIGN The Physical Therapy Progress Notes documented by Podiatrist Orthopedic have been reviewed. Reviewed/Co-Signed by: Lewis Yañez Documentation Done by: KARLY DEL ANGEL PTA Addendum: 09/17/21 at 0907 by Lewis Yañez PT Amended: Links added.
[2021-09-17] MEDS: guaiFENesin ER 600 MG TAB PO SCH ×2 (09:15→22:13)
[2021-09-17] MEDS: OLANZapine 2.5 MG TABLET PO SCH ×2 (09:15→22:13)
[2021-09-17] MEDS: DOCUSATE SODIUM 100 MG CAPSULE PO SCH (09:15)
[2021-09-17] MEDS: POLYETHYLENE GLYCOL 3350, 17 GM/ POWD.PACK PO SCH (09:15)
[2021-09-17] MEDS: PANTOPRAZOLE SODIUM 40 MG TAB PO SCH (09:16)
[2021-09-17] MEDS: SERTRALINE HCL 50 MG TABLET PO SCH (09:16)
[2021-09-17] MEDS: CHOLECALCIFEROL (VITAMIN D3) 2,000 UNIT TABLET PO SCH (09:16)
[2021-09-17] MEDS: LACTOBACILLUS RHAMNOSUS GG 1 CAP CAPSULE PO SCH ×2 (09:16→22:13)
[2021-09-17] MEDS: MULTIVITS,CA,MINERALS/IRON/FA 1 TABLET PO SCH (09:16)
[2021-09-17] MEDS: ENOXAPARIN SODIUM 40 MG/0.4 ML SYRINGE SQ SCH (09:17)
[2021-09-17] MEDS: predniSONE 20 MG TABLET PO SCH ×2 (09:17→22:14)
[2021-09-17] MEDS: LORazepam 1 MG TABLET PO PRN (09:45)
[2021-09-17 10:03] VITALS: BP_SYST 135
[2021-09-17 10:26] LABS: BASOPHILS # (AUTO) 0.1 K/uL (0.0-0.2); BASOPHILS % (AUTO) 0.6 % (0.0-2.0); EOSINOPHILS # (AUTO) 0.1 K/uL (0.0-0.4); EOSINOPHILS % (AUTO) 0.7 % (0.0-4.0); HEMATOCRIT 37.2 % (36-48); HEMOGLOBIN 12.5 g/dL (12.0-16.0); LYMPHOCYTES # (AUTO) 1.4 K/uL (1.0-5.5); LYMPHOCYTES % (AUTO) 8.9 % (20.5-51.5); MEAN CORPUSCULAR HEMOGLOBIN 29 pg (27-31); MEAN CORPUSCULAR HGB CONC 34 % (32-36); MEAN CORPUSCULAR VOLUME 86 fL (79.0-98.0); MONOCYTES # (AUTO) 0.9 K/uL (0.0-1.0); MONOCYTES % (AUTO) 5.7 % (1.7-9.3); NEUTROPHILS # (AUTO) 13.4 K/uL (1.8-7.7); NEUTROPHILS % (AUTO) 84.1 % (40.0-70.0); PLATELET COUNT (AUTO) 330 K/uL (130-430); RED BLOOD CELL COUNT(AUTO) 4.35 MIL/uL (4.2-6.2); WHITE BLOOD COUNT (AUTO) 15.9 K/uL (4.8-10.8)
[2021-09-17] MEDS: IPRATROPIUM/ALBUTEROL SULFATE 3 ML AMPUL.NEB (DUONEB) INH PRN ×2 (10:43→15:25)
[2021-09-17 11:00] LABS: ALBUMIN 3.2 g/dL (3.4-4.8); CALCIUM 9.1 mg/dL (8.4-11.0); CREATININE 0.51 mg/dL (0.55-1.30); POTASSIUM 5.4 mmol/L (3.5-5.1); TOTAL BILIRUBIN 0.3 mg/dL (0.0-1.0)
[2021-09-17 11:21] VITALS: BP_SYST 155
--- NOTE | 2021-09-17 14:23 | NUR ---
Spoke w/POA for patient with member services for [facility]- The POA does not want the patient to return to [facility], he would like the patient to go to [place] or [facility]. The solar field installation crew member gave me names of [facility] contracted facilities in these 2 [facility]. We will look for placement for the patient in the cities the POA requested.
[2021-09-17] MEDS: traMADol HCL HCL 50 MG TABLET (ULTRAM) PO PRN (14:49)
--- NOTE | 2021-09-17 15:00 | NUR ---
Discharge Planning: DCPO faxed pt referal to [facility] P#[phone] F#[phone] DCP to follow up Addendum: 09/17/21 at 1627 by Rebecca SAWYER Iram Lira P#[phone] F#[phone]
[2021-09-17 15:50] VITALS: BP_SYST 131
[2021-09-17] MEDS: LEVOFLOXACIN 250 MG/D5W 100 ML IV SCH (17:38)
[2021-09-17 20:00] VITALS: BP_SYST 142
[2021-09-17] MEDS: TEMAZEPAM 15 MG CAPSULE PO PRN (22:13)
--- NOTE | 2021-09-17 22:39 | NUR ---
Patient in bed. No acute distress noted. Resp treatment given. Will continue to monitor.
[2021-09-18 00:40] VITALS: BP_SYST 117
[2021-09-18] MEDS: IPRATROPIUM/ALBUTEROL SULFATE 3 ML AMPUL.NEB (DUONEB) INH SCH ×5 (01:06→21:13)
[2021-09-18] MEDS: BUDESONIDE 0.5 MG/2 ML AMPUL.NEB INH SCH ×3 (01:07→21:13)
[2021-09-18] MEDS: busPIRone HCL 5 MG TABLET PO SCH ×3 (05:44→17:22)
[2021-09-18 08:00] VITALS: BP_SYST 178
[2021-09-18] MEDS: HYDROcodone/ACETAMIN 5-325 MG TAB (NORCO/ VICODIN) PO PRN ×3 (09:05→21:14)
[2021-09-18] MEDS: DOCUSATE SODIUM 100 MG CAPSULE PO SCH (09:16)
[2021-09-18] MEDS: LACTOBACILLUS RHAMNOSUS GG 1 CAP CAPSULE PO SCH ×2 (09:16→21:00)
[2021-09-18] MEDS: POLYETHYLENE GLYCOL 3350, 17 GM/ POWD.PACK PO SCH (09:16)
[2021-09-18] MEDS: guaiFENesin ER 600 MG TAB PO SCH ×2 (09:16→20:59)
[2021-09-18] MEDS: ENOXAPARIN SODIUM 40 MG/0.4 ML SYRINGE SQ SCH (09:17)
[2021-09-18] MEDS: OLANZapine 2.5 MG TABLET PO SCH ×2 (09:17→20:59)
[2021-09-18] MEDS: PANTOPRAZOLE SODIUM 40 MG TAB PO SCH (09:17)
[2021-09-18] MEDS: predniSONE 20 MG TABLET PO SCH ×2 (09:17→20:59)
[2021-09-18] MEDS: MULTIVITS,CA,MINERALS/IRON/FA 1 TABLET PO SCH (09:17)
[2021-09-18] MEDS: SERTRALINE HCL 50 MG TABLET PO SCH (09:17)
[2021-09-18] MEDS: CHOLECALCIFEROL (VITAMIN D3) 2,000 UNIT TABLET PO SCH (09:17)
[2021-09-18] MEDS ORDERED: MEGESTROL ACETATE 400 MG/10 ML UDC PO ONE (11:45)
[2021-09-18 12:00] VITALS: BP_SYST 180
[2021-09-18] MEDS: LORazepam 1 MG TABLET PO PRN ×2 (12:03→17:22)
[2021-09-18] MEDS: cloNIDine HCL 0.1 MG TABLET PO PRN (14:00)
[2021-09-18 16:00] VITALS: BP_SYST 144
[2021-09-18] MEDS: IPRATROPIUM/ALBUTEROL SULFATE 3 ML AMPUL.NEB (DUONEB) INH PRN (17:17)
[2021-09-18] MEDS: INSULIN REGULAR, HUMAN 100 UNITS/ML, 10 ML VIAL (humuLIN R) SUBCUT PRN (17:32)
[2021-09-18] MEDS: LEVOFLOXACIN 250 MG/D5W 100 ML IV SCH (18:38)
--- NOTE | 2021-09-18 19:45 | NUR ---
Opening notes Received patient awake, resting in bed, no distress. She asked for a snack. Patient is AOx4 and reports she has been ambulating by self to restroom and therefore does not want bed alarm on - it was not on. Bed is locked in lowest position, side rails up 3x and call light w/in reach.
[2021-09-18 20:00] VITALS: BP_SYST 139
--- NOTE | 2021-09-18 20:37 | NUR ---
RT at bedside RT administering breathing treatment.
[2021-09-19] MEDS: IPRATROPIUM/ALBUTEROL SULFATE 3 ML AMPUL.NEB (DUONEB) INH SCH ×5 (01:49→23:11)
[2021-09-19] MEDS: busPIRone HCL 5 MG TABLET PO SCH ×3 (06:52→16:36)
[2021-09-19 07:50] LABS: CREATININE 0.63 mg/dL (0.55-1.30); POTASSIUM 4.4 mmol/L (3.5-5.1)
[2021-09-19 08:00] VITALS: BP_SYST 139
[2021-09-19] MEDS: LORazepam 1 MG TABLET PO PRN ×3 (08:42→21:51)
[2021-09-19] MEDS: HYDROcodone/ACETAMIN 5-325 MG TAB (NORCO/ VICODIN) PO PRN ×4 (08:42→20:57)
[2021-09-19] MEDS: guaiFENesin ER 600 MG TAB PO SCH ×2 (08:52→20:56)
[2021-09-19] MEDS: LACTOBACILLUS RHAMNOSUS GG 1 CAP CAPSULE PO SCH ×2 (08:52→20:57)
[2021-09-19] MEDS: predniSONE 20 MG TABLET PO SCH ×2 (08:52→20:56)
[2021-09-19] MEDS: PANTOPRAZOLE SODIUM 40 MG TAB PO SCH (08:52)
[2021-09-19] MEDS: MEGESTROL ACETATE 400 MG/10 ML UDC PO SCH (08:52)
[2021-09-19] MEDS: OLANZapine 2.5 MG TABLET PO SCH ×2 (08:53→20:57)
[2021-09-19] MEDS: ENOXAPARIN SODIUM 40 MG/0.4 ML SYRINGE SQ SCH (08:53)
[2021-09-19] MEDS: SERTRALINE HCL 50 MG TABLET PO SCH (08:53)
[2021-09-19] MEDS: CHOLECALCIFEROL (VITAMIN D3) 2,000 UNIT TABLET PO SCH (08:53)
[2021-09-19] MEDS: MULTIVITS,CA,MINERALS/IRON/FA 1 TABLET PO SCH (08:53)
[2021-09-19] MEDS: DOCUSATE SODIUM 100 MG CAPSULE PO SCH (08:54)
[2021-09-19] MEDS: POLYETHYLENE GLYCOL 3350, 17 GM/ POWD.PACK PO SCH (08:54)
[2021-09-19] MEDS: BUDESONIDE 0.5 MG/2 ML AMPUL.NEB INH SCH ×2 (09:15→23:11)
[2021-09-19] MEDS: IPRATROPIUM/ALBUTEROL SULFATE 3 ML AMPUL.NEB (DUONEB) INH PRN ×2 (09:16→11:27)
[2021-09-19 09:18] LABS: HEMATOCRIT 35.7 % (36-48); HEMOGLOBIN 12.1 g/dL (12.0-16.0); MEAN CORPUSCULAR HEMOGLOBIN 29 pg (27-31); MEAN CORPUSCULAR HGB CONC 34 % (32-36); MEAN CORPUSCULAR VOLUME 86 fL (79.0-98.0); PLATELET COUNT (AUTO) 289 K/uL (130-430); RED BLOOD CELL COUNT(AUTO) 4.17 MIL/uL (4.2-6.2); RED CELL DISTRIBUTION WIDTH 15.5 % (9.0-15.0)
[2021-09-19 12:00] VITALS: BP_SYST 129
[2021-09-19 13:12] LABS: WHITE BLOOD COUNT (AUTO) 16.1 K/uL (4.8-10.8)
[2021-09-19 16:00] VITALS: BP_SYST 149
[2021-09-19 16:45] LABS: BAND % (MANUAL) 2 % (0-6); BASOPHILS % (MANUAL) 0 % (0-2); EOSINOPHILS % (MANUAL) 0 % (0-7); LYMPHOCYTES % (MANUAL) 13 % (20-46); METAMYELOCYTES % 6 % (0-0); MONOCYTES % (MANUAL) 7 % (0-11)
[2021-09-19] MEDS: LEVOFLOXACIN 250 MG/D5W 100 ML IV SCH (17:33)
[2021-09-19 20:00] VITALS: BP_SYST 128
[2021-09-19] MEDS: TEMAZEPAM 15 MG CAPSULE PO PRN (21:50)
[2021-09-20 00:05] VITALS: BP_SYST 114
[2021-09-20] MEDS: busPIRone HCL 5 MG TABLET PO SCH ×3 (07:05→16:59)
--- NOTE | 2021-09-20 07:41 | NUR ---
PHYSICAL THERAPY CO-SIGN The Physical Therapy Progress Notes documented by Cook Apprentice Pastry have been reviewed. Reviewed/Co-Signed by: Lewis Yañez Documentation Done by: KARLY DEL ANGEL PTA Addendum: 09/20/21 at 0741 by Lewis Yañez PT Amended: Links added.
[2021-09-20 08:03] VITALS: BP_SYST 145
[2021-09-20] MEDS: BUDESONIDE 0.5 MG/2 ML AMPUL.NEB INH SCH (08:04)
[2021-09-20] MEDS: IPRATROPIUM/ALBUTEROL SULFATE 3 ML AMPUL.NEB (DUONEB) INH SCH ×3 (08:05→17:53)
[2021-09-20] MEDS: MEGESTROL ACETATE 400 MG/10 ML UDC PO SCH (08:54)
[2021-09-20] MEDS: ENOXAPARIN SODIUM 40 MG/0.4 ML SYRINGE SQ SCH (08:54)
[2021-09-20] MEDS: guaiFENesin ER 600 MG TAB PO SCH ×2 (08:55→21:03)
[2021-09-20] MEDS: PANTOPRAZOLE SODIUM 40 MG TAB PO SCH (08:55)
[2021-09-20] MEDS: predniSONE 20 MG TABLET PO SCH ×2 (08:55→21:03)
[2021-09-20] MEDS: OLANZapine 2.5 MG TABLET PO SCH ×2 (08:55→21:03)
[2021-09-20] MEDS: CHOLECALCIFEROL (VITAMIN D3) 2,000 UNIT TABLET PO SCH (08:55)
[2021-09-20] MEDS: MULTIVITS,CA,MINERALS/IRON/FA 1 TABLET PO SCH (08:55)
[2021-09-20] MEDS: SERTRALINE HCL 50 MG TABLET PO SCH (08:56)
[2021-09-20] MEDS: LORazepam 1 MG TABLET PO PRN ×3 (09:00→21:04)
[2021-09-20] MEDS: POLYETHYLENE GLYCOL 3350, 17 GM/ POWD.PACK PO SCH (09:00)
[2021-09-20] MEDS: DOCUSATE SODIUM 100 MG CAPSULE PO SCH (09:00)
[2021-09-20] MEDS: LACTOBACILLUS RHAMNOSUS GG 1 CAP CAPSULE PO SCH ×2 (09:02→21:03)
[2021-09-20 10:19] VITALS: BP_SYST 145
[2021-09-20] MEDS: IPRATROPIUM/ALBUTEROL SULFATE 3 ML AMPUL.NEB (DUONEB) INH PRN (11:05)
[2021-09-20] MEDS: HYDROcodone/ACETAMIN 5-325 MG TAB (NORCO/ VICODIN) PO PRN ×2 (12:18→17:49)
--- NOTE | 2021-09-20 12:27 | NUR ---
Spoke w/Santiago Johansen-patient's POA [phone]-he will contact [facility] re:insurance and payment issues for SNF placement
[2021-09-20] MEDS: traMADol HCL HCL 50 MG TABLET (ULTRAM) PO PRN (15:49)
[2021-09-20 16:00] VITALS: BP_SYST 156
[2021-09-20 16:27] VITALS: BP_SYST 146
[2021-09-20] MEDS: LEVOFLOXACIN 250 MG/D5W 100 ML IV SCH (16:59)
--- NOTE | 2021-09-20 17:24 | NUR ---
LEFT THUMB IV ACCESS LEAKING, NEW IV ACCESS INSERTED AT RIGHT THUMB #24 WITH GOOD BLOOD RETURN FLUSH WITH 10 CC OF NORMAL SALINE. WILL MONITOR FOR INFILTRATION.
--- NOTE | 2021-09-20 18:43 | NUR ---
PATIENT IS VERY ANXIOUS, FORGETFUL. BED B IS VERY IRRITATED. PT KEEP ON CALLING NONSTOP WITH SMALL THINGS. INFORMED WILL PLACE TO SEPARATE ROOM.
--- NOTE | 2021-09-20 19:27 | NUR ---
patient transferred to room 133A.
[2021-09-20 19:50] VITALS: BP_SYST 143
--- NOTE | 2021-09-20 19:50 | NUR ---
PM ASSESSMENT; -Pt is a/ox2-3, episode of forgetfulness noted. Pt is self ambulatory with slow steady gaits, assistance standby. Pt denies any chest pain,sob,pain,or any acute distress. Dyspnea upon exertion. IV site of rt hand #24 patent,no s/s any infiltration noted after flushed w/ ns,fe cdi. BSC with assistance.Discussed poc,all safety measures, pt is able how to use call light for assistance. Educated and instructed pt to use call light whenever OOB or if experiencing any pain,sob,or any acute distress, pt verbalized understanding. BUE dry and bruises noted. Pt is using 2L nc/ oxy q2xlh=97%. All safety measures in place. Call light w/in reach. Cont to monitor pt.
--- NOTE | 2021-09-20 21:03 | NUR ---
ROUNDS; -Pt is anxious, gave Ativan po upon p's request and all routine po meds. All safety measures in place. Call light w/in reach. Cont to monitor pt.
--- NOTE | 2021-09-20 23:15 | NUR ---
ROUNDS; -Pt is resting in bed comfortably. NO s/s any pain,sob,or any acute distress noted. All safety measures in place. Call light w/in reach. Cont to monitor pt.
--- NOTE | 2021-09-21 00:01 | NUR ---
ROUNDS; DR. HERNANDEZ MAKES ROUND AND ORDERED ABG AND CXR FOR AM
--- NOTE | 2021-09-21 02:11 | NUR ---
ROUNDS; -Pt is asleep in bed comfortably. NO s/s any pain,sob,or any acute distress noted. All safety measures in place. Call light w/in reach. Cont to monitor pt.
[2021-09-21] MEDS: BUDESONIDE 0.5 MG/2 ML AMPUL.NEB INH SCH ×3 (04:17→21:42)
[2021-09-21] MEDS: IPRATROPIUM/ALBUTEROL SULFATE 3 ML AMPUL.NEB (DUONEB) INH SCH ×4 (04:17→21:42)
[2021-09-21 06:07] VITALS: BP_SYST 134
[2021-09-21] MEDS: busPIRone HCL 5 MG TABLET PO SCH ×4 (06:10→16:40)
--- NOTE | 2021-09-21 06:12 | NUR ---
ROUNDS; blood rgbfl=118,no ssi coverage. -Pt is asleep in bed comfortably, easily awake. NO s/s any pain,sob,or any acute distress noted. All safety measures in place. Call light w/in reach. Cont to monitor pt.
--- NOTE | 2021-09-21 06:35 | NUR ---
CLOSING NOTES; -Pt is resting in bed comfortably. Pt denies any chest pain,pain,sob,or any acute distress. IV site of rt hand patent drsg cdi. Pt is using 2L n/c continuously. BSC at bedside. All safety measures in place. Call light w/in reach. Will endorse to next shift nurse to cont care.
[2021-09-21 08:00] VITALS: BP_SYST 140
--- NOTE | 2021-09-21 08:08 | NUR ---
Report received from EMILY Holliday for continuity of care. Patient stable condition. No distress. Patient able to respond to needs.
--- NOTE | 2021-09-21 08:08 | NUR ---
PHYSICAL THERAPY CO-SIGN The Physical Therapy Progress Notes documented by Nurse Substance Abuse have been reviewed. Reviewed/Co-Signed by: Lewis Yañez Documentation Done by: KARLY DEL ANGEL PTA Addendum: 09/21/21 at 0808 by Lewis Yañez PT Amended: Links added.
[2021-09-21] MEDS: POLYETHYLENE GLYCOL 3350, 17 GM/ POWD.PACK PO SCH (10:02)
[2021-09-21] MEDS: ENOXAPARIN SODIUM 40 MG/0.4 ML SYRINGE SQ SCH (10:03)
[2021-09-21] MEDS: MEGESTROL ACETATE 400 MG/10 ML UDC PO SCH (10:03)
[2021-09-21] MEDS: SERTRALINE HCL 50 MG TABLET PO SCH (10:04)
[2021-09-21] MEDS: CHOLECALCIFEROL (VITAMIN D3) 2,000 UNIT TABLET PO SCH (10:04)
[2021-09-21] MEDS: DOCUSATE SODIUM 100 MG CAPSULE PO SCH (10:04)
[2021-09-21] MEDS: guaiFENesin ER 600 MG TAB PO SCH ×2 (10:04→21:27)
[2021-09-21] MEDS: predniSONE 20 MG TABLET PO SCH ×2 (10:04→21:26)
[2021-09-21] MEDS: MULTIVITS,CA,MINERALS/IRON/FA 1 TABLET PO SCH (10:04)
[2021-09-21] MEDS: OLANZapine 2.5 MG TABLET PO SCH ×2 (10:04→21:26)
[2021-09-21] MEDS: PANTOPRAZOLE SODIUM 40 MG TAB PO SCH (10:04)
[2021-09-21] MEDS: LACTOBACILLUS RHAMNOSUS GG 1 CAP CAPSULE PO SCH ×2 (10:04→21:27)
[2021-09-21] MEDS: LORazepam 1 MG TABLET PO PRN (11:29)
[2021-09-21 12:00] VITALS: BP_SYST 149
[2021-09-21] MEDS ORDERED: traMADol HCL HCL 50 MG TABLET (ULTRAM) PO PRN (12:00)
--- NOTE | 2021-09-21 14:01 | NUR ---
Referrals sent to [place] [phone] [facility] [phone] [facility] [phone] Manuelito Zuluaga [phone] [facility] [phone]
[2021-09-21] MEDS: IPRATROPIUM/ALBUTEROL SULFATE 3 ML AMPUL.NEB (DUONEB) INH PRN ×2 (15:08→17:19)
[2021-09-21] MEDS: HYDROcodone/ACETAMIN 5-325 MG TAB (NORCO/ VICODIN) PO PRN (15:52)
[2021-09-21 16:00] VITALS: BP_SYST 162
[2021-09-21] MEDS: cloNIDine HCL 0.1 MG TABLET PO PRN (16:40)
[2021-09-21] MEDS: INSULIN REGULAR, HUMAN 100 UNITS/ML, 10 ML VIAL (humuLIN R) SUBCUT PRN (17:14)
--- NOTE | 2021-09-21 19:43 | NUR ---
Report given to EMILY Pittman for continuity of care. Patient stable condition. No distress noted.
[2021-09-21 21:24] VITALS: BP_SYST 103
[2021-09-21] MEDS: TEMAZEPAM 15 MG CAPSULE PO PRN (21:27)
[2021-09-22] MEDS: IPRATROPIUM/ALBUTEROL SULFATE 3 ML AMPUL.NEB (DUONEB) INH SCH ×4 (01:00→20:08)
[2021-09-22 06:22] LABS: BASOPHILS # (AUTO) 0.1 K/uL (0.0-0.2); BASOPHILS % (AUTO) 0.4 % (0.0-2.0); EOSINOPHILS % (AUTO) 0.1 % (0.0-4.0); HEMATOCRIT 31.5 % (36-48); HEMOGLOBIN 10.7 g/dL (12.0-16.0); LYMPHOCYTES # (AUTO) 0.8 K/uL (1.0-5.5); MEAN CORPUSCULAR HEMOGLOBIN 29 pg (27-31); MEAN CORPUSCULAR HGB CONC 34 % (32-36); MEAN CORPUSCULAR VOLUME 86 fL (79.0-98.0); MONOCYTES # (AUTO) 0.6 K/uL (0.0-1.0); MONOCYTES % (AUTO) 3.7 % (1.7-9.3); NEUTROPHILS # (AUTO) 15.3 K/uL (1.8-7.7); NEUTROPHILS % (AUTO) 90.8 % (40.0-70.0); PLATELET COUNT (AUTO) 246 K/uL (130-430); RED BLOOD CELL COUNT(AUTO) 3.67 MIL/uL (4.2-6.2); RED CELL DISTRIBUTION WIDTH 16.2 % (9.0-15.0); WHITE BLOOD COUNT (AUTO) 16.8 K/uL (4.8-10.8)
[2021-09-22 06:46] LABS: ALBUMIN 2.5 g/dL (3.4-4.8); CALCIUM 8.1 mg/dL (8.4-11.0); CREATININE 0.52 mg/dL (0.55-1.30); PHOSPHORUS 3.6 mg/dL (2.7-4.5); POTASSIUM 4.5 mmol/L (3.5-5.1); TOTAL BILIRUBIN 0.2 mg/dL (0.0-1.0)
[2021-09-22] MEDS: BUDESONIDE 0.5 MG/2 ML AMPUL.NEB INH SCH ×2 (07:46→20:09)
[2021-09-22 08:00] VITALS: BP_SYST 136
[2021-09-22] MEDS: POLYETHYLENE GLYCOL 3350, 17 GM/ POWD.PACK PO SCH (09:00)
[2021-09-22] MEDS: guaiFENesin ER 600 MG TAB PO SCH ×2 (09:29→21:55)
[2021-09-22] MEDS: ENOXAPARIN SODIUM 40 MG/0.4 ML SYRINGE SQ SCH (09:29)
[2021-09-22] MEDS: MEGESTROL ACETATE 400 MG/10 ML UDC PO SCH (09:29)
[2021-09-22] MEDS: predniSONE 20 MG TABLET PO SCH ×2 (09:29→21:56)
[2021-09-22] MEDS: CHOLECALCIFEROL (VITAMIN D3) 2,000 UNIT TABLET PO SCH (09:29)
[2021-09-22] MEDS: PANTOPRAZOLE SODIUM 40 MG TAB PO SCH (09:29)
[2021-09-22] MEDS: DOCUSATE SODIUM 100 MG CAPSULE PO SCH (09:29)
[2021-09-22] MEDS: MULTIVITS,CA,MINERALS/IRON/FA 1 TABLET PO SCH (09:29)
[2021-09-22] MEDS: SERTRALINE HCL 50 MG TABLET PO SCH (09:29)
[2021-09-22] MEDS: OLANZapine 2.5 MG TABLET PO SCH ×2 (09:29→21:56)
[2021-09-22] MEDS: LACTOBACILLUS RHAMNOSUS GG 1 CAP CAPSULE PO SCH ×2 (09:40→21:56)
[2021-09-22] MEDS: HYDROcodone/ACETAMIN 5-325 MG TAB (NORCO/ VICODIN) PO PRN (11:53)
[2021-09-22 12:10] VITALS: BP_SYST 154
[2021-09-22] MEDS: INSULIN REGULAR, HUMAN 100 UNITS/ML, 10 ML VIAL (humuLIN R) SUBCUT PRN ×3 (12:36→21:59)
[2021-09-22] MEDS: LORazepam 1 MG TABLET PO PRN (14:02)
[2021-09-22 16:00] VITALS: BP_SYST 155
--- NOTE | 2021-09-22 16:20 | NUR ---
Nutrition f/u 09/22 Admitting Diagnosis COPD Reviewed Pertinent Medical/Surgical Hx Medical Record Patient Other Medical History Comment: PMH: COPD and depression per physician notes Pt also found w/ acute hypoxic respiratory failure, COPD exacerbation, acute bronchitis, pulmonary fibrosis, anemia, anxiety and depression, iron-deficiency anemia, and moderate protein malnutrition per physician notes Subjective Information 09/22: RD f/u assessment completed. Met with pt bedside who endorses good appetite. PO intake ranges from 50-100% per meal. Pt asked to be sent chocolate ensure. Per pt, last BM 09/22 was normal and pt endorses 1 BM q other day is her normal. Pt denies n/v/c/d. Pt had no further nutrition qs or concerns Current Diet Order/Nutrition Support Mechanical soft x 11 days Patient/Significant Other Able To Verbalize Education Provided Not Indicated Pertinent Medications colace, ativan, protonix, theragran, VIT D3, culturelle, restoriL, norco/vicodin, insulin, zofran, megace Pertinent Labs BG 135 H, POC BG 169 H, HgA1c 5.5 H, WBC 16.8 H, H/H 10.7, 31.5% L Height (Feet) 5 feet Height (Inches) 4.00 inches Weight (Pounds) 118 pounds Weight (Calculated Kilograms) 53.810638 kilograms Patient Weight 53.524 kg Body Mass Index 20.25 kg/m2 Usual Weight 118 lbs %UBW 100 %IBW 98 Patterson/Adjusted Body Weight 118#/53.6 kg Recent Weight Change No Weight Status Underweight Last BM Sep 12, 2021 Food Allergies No Usual Diet At Home Regular per pt report and nursing nutritional assessment Skin Integrity Comment: Vic scale: 15; no PIs noted per EMR review Current % PO 62.5% average x8 meal records Estimated Energy Expenditure (kcals/day) 1131-8036 (30-35 kcal/kg CBW d/t COPD) Estimated Protein Required (g/day) 70-107 (1.3-2 gm/kg CBW d/t COPD) Estimated Fluid Required (l/day) 1.6-1.9 (1 ml/kcal/day for maintenance) Problem/Etiology/Signs/Symptoms Suboptimal nutritional intakes R/T fair appetite AEB PO intake records *on-going. Expected Outcomes/Goals - Monitor appetite and PO intakes w/ goal of pt meeting >75% of estimated nutritional needs, labs trending WNL, normal GI function, and skin integrity/wt maintenance Dietitian Recommendations * Continue Mechanical soft diet * Encourage increase PO intakes * Chocolate Ensure Enlive ONS daily Follow Up Mod Risk: F/U in 3-5 days Follow Up By Sep 26 Sep 27
--- NOTE | 2021-09-22 16:23 | NUR ---
Dietitian Recommendations: * Continue Mechanical soft diet * Encourage increase PO intakes * Chocolate Ensure Enlive ONS daily CC, MPH, RDN
[2021-09-22 16:49] VITALS: BP_SYST 156
[2021-09-22] MEDS ORDERED: AZITHROMYCIN 250 MG TABLET PO ONE (17:30)
[2021-09-22] MEDS: cefTRIAXone 1 GM in D5W 50 ML IV SCH (18:12)
--- NOTE | 2021-09-22 18:19 | NUR ---
patient c/o shortness breath. Called RT. Vitals stable. Patient placed on bipap for comfort and preference.
[2021-09-22 18:30] VITALS: BP_SYST 142
--- NOTE | 2021-09-22 18:59 | NUR ---
PHYSICAL THERAPY CO-SIGN The Physical Therapy Progress Notes documented by Conveyancer have been reviewed. Reviewed/Co-Signed by: Argelia Zavaleta PT Documentation Done by:FREDI DEL ANGEL BILINGUAL BRANCH MANAGER Addendum: 09/22/21 at 1859 by Argelia Zavaleta PT Amended: Links added.
--- NOTE | 2021-09-22 19:25 | NUR ---
Report given EMILY Colón for continuity of care. No distress noted.
[2021-09-22 20:00] VITALS: BP_SYST 160
--- NOTE | 2021-09-22 20:45 | NUR ---
RECEIVED PT TRANSFERRING TO COMMODE, SOB UPON EXERTION, AAOX4, IV TO RT FA SITE CDI. ON O2 2L SAT 97%, LUNG SOUNDS B/L DIMINISHED. RECOVERS FROM SOB UPON RESTING. WILL MONITOR CLOSELY.
[2021-09-23 00:10] VITALS: BP_SYST 155
[2021-09-23] MEDS: IPRATROPIUM/ALBUTEROL SULFATE 3 ML AMPUL.NEB (DUONEB) INH SCH ×3 (01:45→13:54)
[2021-09-23 06:49] LABS: BASOPHILS % (AUTO) 0.1 % (0.0-2.0); EOSINOPHILS % (AUTO) 0.1 % (0.0-4.0); HEMATOCRIT 32.6 % (36-48); LYMPHOCYTES # (AUTO) 0.7 K/uL (1.0-5.5); LYMPHOCYTES % (AUTO) 4.7 % (20.5-51.5); MEAN CORPUSCULAR HEMOGLOBIN 29 pg (27-31); MEAN CORPUSCULAR HGB CONC 34 % (32-36); MEAN CORPUSCULAR VOLUME 86 fL (79.0-98.0); MONOCYTES # (AUTO) 0.6 K/uL (0.0-1.0); MONOCYTES % (AUTO) 4.4 % (1.7-9.3); NEUTROPHILS % (AUTO) 90.7 % (40.0-70.0); PLATELET COUNT (AUTO) 243 K/uL (130-430); RETICULOCYTE COUNT 2.5 % (0.5-1.5); WHITE BLOOD COUNT (AUTO) 14.3 K/uL (4.8-10.8)
[2021-09-23] MEDS: BUDESONIDE 0.5 MG/2 ML AMPUL.NEB INH SCH (07:42)
--- NOTE | 2021-09-23 07:47 | NUR ---
PHYSICAL THERAPY CO-SIGN The Physical Therapy Progress Notes documented by Music Department Chair have been reviewed. Reviewed/Co-Signed by: Lewis Yañez Documentation Done by: KARLY DEL ANGEL PTA Addendum: 09/23/21 at 0747 by Lewis Yañez PT Amended: Links added.
[2021-09-23 08:00] VITALS: BP_SYST 148
[2021-09-23 08:16] LABS: ALBUMIN 2.6 g/dL (3.4-4.8); CALCIUM 8.2 mg/dL (8.4-11.0); CREATININE 0.49 mg/dL (0.55-1.30); POTASSIUM 4.1 mmol/L (3.5-5.1); TOTAL BILIRUBIN 0.3 mg/dL (0.0-1.0)
[2021-09-23] MEDS: POLYETHYLENE GLYCOL 3350, 17 GM/ POWD.PACK PO SCH (09:00)
[2021-09-23] MEDS: MEGESTROL ACETATE 400 MG/10 ML UDC PO SCH (09:19)
[2021-09-23] MEDS: OLANZapine 2.5 MG TABLET PO SCH ×2 (09:19→22:23)
[2021-09-23] MEDS: guaiFENesin ER 600 MG TAB PO SCH ×2 (09:19→22:23)
[2021-09-23] MEDS: AZITHROMYCIN 250 MG TABLET PO SCH (09:19)
[2021-09-23] MEDS: predniSONE 20 MG TABLET PO SCH ×2 (09:19→22:23)
[2021-09-23] MEDS: ENOXAPARIN SODIUM 40 MG/0.4 ML SYRINGE SQ SCH (09:20)
[2021-09-23] MEDS: SERTRALINE HCL 50 MG TABLET PO SCH (09:20)
[2021-09-23] MEDS: LACTOBACILLUS RHAMNOSUS GG 1 CAP CAPSULE PO SCH ×2 (09:20→22:23)
[2021-09-23] MEDS: DOCUSATE SODIUM 100 MG CAPSULE PO SCH (09:20)
[2021-09-23] MEDS: PANTOPRAZOLE SODIUM 40 MG TAB PO SCH (09:20)
[2021-09-23] MEDS: CHOLECALCIFEROL (VITAMIN D3) 2,000 UNIT TABLET PO SCH (09:20)
[2021-09-23] MEDS: MULTIVITS,CA,MINERALS/IRON/FA 1 TABLET PO SCH (09:20)
[2021-09-23] MEDS: INSULIN REGULAR, HUMAN 100 UNITS/ML, 10 ML VIAL (humuLIN R) SUBCUT PRN ×2 (11:37→17:31)
[2021-09-23 12:11] VITALS: BP_SYST 139
--- NOTE | 2021-09-23 12:40 | NUR ---
RT NOTE: 1240 Pt taken off BiPAP and placed on 2LPM nasal cannula for lunch. No resp distress noted.
--- NOTE | 2021-09-23 16:15 | NUR ---
Discharge Planning: DCP followed up with, Iram Lira [phone]- only taking vaccinated pts I[facility] Nathalie [phone]-No female beds [facility] [phone] Beds [facility] [phone] female beds, pt not vaccinated [facility] [phone]-Shahzad in admissions [facility] [phone]-declined DCP made CM aware. DCP will reach out to insurance for additional contracted SNF.
[2021-09-23 16:21] VITALS: BP_SYST 159
[2021-09-23] MEDS: cefTRIAXone 1 GM in D5W 50 ML IV SCH (16:42)
[2021-09-23] MEDS ORDERED: LORazepam 1 MG TABLET PO ONE (17:00)
--- NOTE | 2021-09-23 17:01 | NUR ---
Patient having anxiety. Patient given vistaril. 30 minutes later, patient says it did not work. Dr. Mcknight notified. New orders noted and carried out.
--- NOTE | 2021-09-23 20:06 | NUR ---
Report given to EMILY Ramos for continuity of care. Patient stable resting in bed at the moment. RT was just making rounds to see patient.
[2021-09-24] MEDS: BUDESONIDE 0.5 MG/2 ML AMPUL.NEB INH SCH ×3 (00:19→23:18)
[2021-09-24] MEDS: IPRATROPIUM/ALBUTEROL SULFATE 3 ML AMPUL.NEB (DUONEB) INH SCH ×5 (00:19→23:17)
--- NOTE | 2021-09-24 05:50 | NUR ---
Pt requesting breathing tx. Called 2235 - busy. Called 2234 and mssg left.
[2021-09-24 08:00] VITALS: BP_SYST 160
--- NOTE | 2021-09-24 08:00 | NUR ---
NURSING NOTE: Pt. c/o of SOB and received breathing treatment at 0748. PHARMACY BUYER checked Pt. at 0800 and noted Pt. removed breathing mask, still with medication inhalation. As soon as PHARMACY BUYER stepped out of the room after assessment, Pt. called again and c/o SOB. Reminded Pt. that she just received breathing treatment and explained to Pt. to give medication some time to take effect. Will continue to monitor.
[2021-09-24] MEDS: LACTOBACILLUS RHAMNOSUS GG 1 CAP CAPSULE PO SCH ×2 (09:57→21:01)
[2021-09-24] MEDS: MEGESTROL ACETATE 400 MG/10 ML UDC PO SCH (09:58)
[2021-09-24] MEDS: AZITHROMYCIN 250 MG TABLET PO SCH (09:58)
[2021-09-24] MEDS: guaiFENesin ER 600 MG TAB PO SCH ×2 (09:58→21:00)
[2021-09-24] MEDS: POLYETHYLENE GLYCOL 3350, 17 GM/ POWD.PACK PO SCH (09:58)
[2021-09-24] MEDS: MULTIVITS,CA,MINERALS/IRON/FA 1 TABLET PO SCH (09:59)
[2021-09-24] MEDS: SERTRALINE HCL 50 MG TABLET PO SCH (09:59)
[2021-09-24] MEDS: PANTOPRAZOLE SODIUM 40 MG TAB PO SCH (09:59)
[2021-09-24] MEDS: OLANZapine 2.5 MG TABLET PO SCH ×2 (09:59→21:01)
[2021-09-24] MEDS: predniSONE 20 MG TABLET PO SCH ×3 (09:59→21:02)
[2021-09-24] MEDS: ENOXAPARIN SODIUM 40 MG/0.4 ML SYRINGE SQ SCH (10:00)
[2021-09-24] MEDS: CHOLECALCIFEROL (VITAMIN D3) 2,000 UNIT TABLET PO SCH (10:00)
[2021-09-24] MEDS: DOCUSATE SODIUM 100 MG CAPSULE PO SCH (10:06)
[2021-09-24] MEDS ORDERED: predniSONE 20 MG TABLET PO ONE (10:15)
[2021-09-24] MEDS: IPRATROPIUM/ALBUTEROL SULFATE 3 ML AMPUL.NEB (DUONEB) INH PRN ×2 (10:39→16:12)
[2021-09-24] MEDS: INSULIN REGULAR, HUMAN 100 UNITS/ML, 10 ML VIAL (humuLIN R) SUBCUT PRN ×2 (11:38→17:27)
--- NOTE | 2021-09-24 13:10 | NUR ---
NURSING NOTE: Pt. noted to keep removing breathing mask then will c/o SOB. Reinforced teaching on the importance of breathing treatment. Will continue to monitor.
[2021-09-24 14:33] VITALS: BP_SYST 113
--- NOTE | 2021-09-24 15:25 | NUR ---
RT NOTES 1525 PT BEEN ON/OFF BIPAP. PT HAVING BAD ANXIETY. PT CANT KEEP BIPAP MASK ON, BUT KEEPS COMPLAINING SOB. PT SATURATING HIGH 90'S WHOLE TIME.
--- NOTE | 2021-09-24 16:14 | NUR ---
Patient not yet discharged. Wrong discharge episode.
[2021-09-24] MEDS: HYDROcodone/ACETAMIN 5-325 MG TAB (NORCO/ VICODIN) PO PRN ×2 (17:48→21:00)
--- NOTE | 2021-09-24 20:00 | NUR ---
Recieved pt from AM nurse. Pt. c/o of SOB and received breathing treatment, also on occasional bipap. lungs are diminished bilaterally, pt claims 7/10 pain on her lower back. iv still patet, flushed. Pt is anxious and tolerating treatment. Pt is forgetful, as questions willl be asked several times. Pt. called again and c/o SOB. Reminded Pt. that she just received breathing treatment and explained to Pt. to give medication some time to take effect. Will continue to monitor
[2021-09-24 20:25] VITALS: BP_SYST 161
[2021-09-25 00:56] VITALS: BP_SYST 129
[2021-09-25] MEDS: IPRATROPIUM/ALBUTEROL SULFATE 3 ML AMPUL.NEB (DUONEB) INH SCH ×4 (02:57→19:36)
[2021-09-25] MEDS: BUDESONIDE 0.5 MG/2 ML AMPUL.NEB INH SCH ×2 (07:58→19:35)
[2021-09-25 08:00] VITALS: BP_SYST 104
[2021-09-25] MEDS: MEGESTROL ACETATE 400 MG/10 ML UDC PO SCH (08:58)
[2021-09-25] MEDS: guaiFENesin ER 600 MG TAB PO SCH ×2 (08:59→21:08)
[2021-09-25] MEDS: predniSONE 20 MG TABLET PO SCH ×3 (08:59→21:07)
[2021-09-25] MEDS: MULTIVITS,CA,MINERALS/IRON/FA 1 TABLET PO SCH (08:59)
[2021-09-25] MEDS: POLYETHYLENE GLYCOL 3350, 17 GM/ POWD.PACK PO SCH (09:00)
[2021-09-25] MEDS: PANTOPRAZOLE SODIUM 40 MG TAB PO SCH (09:00)
[2021-09-25] MEDS: AZITHROMYCIN 250 MG TABLET PO SCH (09:00)
[2021-09-25] MEDS: CHOLECALCIFEROL (VITAMIN D3) 2,000 UNIT TABLET PO SCH (09:00)
[2021-09-25] MEDS: LACTOBACILLUS RHAMNOSUS GG 1 CAP CAPSULE PO SCH ×2 (09:00→21:08)
[2021-09-25] MEDS: OLANZapine 2.5 MG TABLET PO SCH ×2 (09:00→21:06)
[2021-09-25] MEDS: DOCUSATE SODIUM 100 MG CAPSULE PO SCH (09:00)
[2021-09-25] MEDS: SERTRALINE HCL 50 MG TABLET PO SCH (09:00)
[2021-09-25] MEDS: ENOXAPARIN SODIUM 40 MG/0.4 ML SYRINGE SQ SCH (09:01)
[2021-09-25 12:00] VITALS: BP_SYST 155
[2021-09-25] MEDS: cloNIDine HCL 0.1 MG TABLET PO PRN (12:47)
[2021-09-25 16:18] VITALS: BP_SYST 151
[2021-09-25] MEDS: IPRATROPIUM/ALBUTEROL SULFATE 3 ML AMPUL.NEB (DUONEB) INH PRN (16:54)
[2021-09-25] MEDS: cefTRIAXone 1 GM in D5W 50 ML IV SCH ×2 (16:58→16:59)
[2021-09-25] MEDS: INSULIN REGULAR, HUMAN 100 UNITS/ML, 10 ML VIAL (humuLIN R) SUBCUT PRN ×2 (16:58→21:21)
--- NOTE | 2021-09-25 18:19 | NUR ---
Patient c/o SOB/unable to breathe despite just getting breathing treatment. Explained to patient that she just received her breathing treatment few minutes ago and requesting to get breathing treatment again. Patient educated to keep calm, to take deep breathes and try to relax. Patient on 2l nc sats above 95%. Patient request for anxiety meds. Reminded patient that she already received her meds as ordered per MD. Will cont to monitor patient
--- NOTE | 2021-09-25 19:26 | NUR ---
END OF SHIFT REPORT GIVEN TO KERRY. THANK YOU
[2021-09-25] MEDS: HYDROcodone/ACETAMIN 5-325 MG TAB (NORCO/ VICODIN) PO PRN ×3 (21:28→22:42)
[2021-09-25] MEDS: TEMAZEPAM 15 MG CAPSULE PO PRN (22:42)
[2021-09-26] VITALS (7 sets, daily range): BP systolic 134–162
--- NOTE | 2021-09-26 04:01 | NUR ---
pt alert and oriented x 3. pt is on 02 @2L, pt shows no sign of resp distress. pt however c/o pain adm narco with positive effect. Pt also c/o insomnia adm restoril with positive effect. pt fell asleep with 30 mins.
--- NOTE | 2021-09-26 07:14 | NUR ---
pt blood sugar 94 no coverage needed. pt slept well through the night. Sleeping aide was effective.
[2021-09-26] MEDS: BUDESONIDE 0.5 MG/2 ML AMPUL.NEB INH SCH (07:21)
[2021-09-26] MEDS: IPRATROPIUM/ALBUTEROL SULFATE 3 ML AMPUL.NEB (DUONEB) INH SCH ×2 (07:21→13:40)
[2021-09-26] MEDS: MEGESTROL ACETATE 400 MG/10 ML UDC PO SCH (08:09)
[2021-09-26] MEDS: CHOLECALCIFEROL (VITAMIN D3) 2,000 UNIT TABLET PO SCH (08:09)
[2021-09-26] MEDS: guaiFENesin ER 600 MG TAB PO SCH ×2 (08:09→20:34)
[2021-09-26] MEDS: predniSONE 20 MG TABLET PO SCH ×3 (08:10→20:34)
[2021-09-26] MEDS: LACTOBACILLUS RHAMNOSUS GG 1 CAP CAPSULE PO SCH ×2 (08:10→20:34)
[2021-09-26] MEDS: AZITHROMYCIN 250 MG TABLET PO SCH (08:10)
[2021-09-26] MEDS: OLANZapine 2.5 MG TABLET PO SCH ×2 (08:10→20:34)
[2021-09-26] MEDS: DOCUSATE SODIUM 100 MG CAPSULE PO SCH (08:10)
[2021-09-26] MEDS: PANTOPRAZOLE SODIUM 40 MG TAB PO SCH (08:10)
[2021-09-26] MEDS: MULTIVITS,CA,MINERALS/IRON/FA 1 TABLET PO SCH (08:11)
[2021-09-26] MEDS: SERTRALINE HCL 50 MG TABLET PO SCH (08:11)
[2021-09-26] MEDS: POLYETHYLENE GLYCOL 3350, 17 GM/ POWD.PACK PO SCH (08:19)
[2021-09-26] MEDS: cloNIDine HCL 0.1 MG TABLET PO PRN (08:25)
[2021-09-26] MEDS: IPRATROPIUM/ALBUTEROL SULFATE 3 ML AMPUL.NEB (DUONEB) INH PRN ×2 (11:36→17:37)
[2021-09-26] MEDS: INSULIN REGULAR, HUMAN 100 UNITS/ML, 10 ML VIAL (humuLIN R) SUBCUT PRN ×2 (12:07→20:46)
--- NOTE | 2021-09-26 13:38 | NUR ---
Nutrition f/u Admitting Diagnosis COPD Reviewed Pertinent Medical/Surgical Hx Medical Record Medical History Comment: PMH: COPD and depression per physician notes Pt also found w/ acute hypoxic respiratory failure, COPD exacerbation, acute bronchitis, pulmonary fibrosis, anemia, anxiety and depression, iron-deficiency anemia, and moderate protein malnutrition per physician notes Subjective Information Not able to talk w/ the patient at time of visit, was w/ nursing staff. Per EMR review LBM 09/25, active bowel sounds x4, abdomen soft, non-distended. Current Diet Order/Nutrition Support Mechanical soft x 15 days Patient/Significant Other Unable To Verbalize Education Provided Not Indicated Pertinent Medications colace, protonix, theragran, VIT D3, culturelle, restoriL, norco/vicodin, insulin, zofran, megace Pertinent Labs BG 176 H, POC BG 91 WNL, HgA1c 5.5 H, WBC 14.3 H Height (Feet) 5 feet Height (Inches) 4.00 inches Weight (Pounds) 118 pounds Weight (Calculated Kilograms) 53.506622 kilograms --last documented 09/16 Patient Weight 53.524 kg Body Mass Index 20.25 kg/m2 Usual Weight 118 lbs %UBW 100 %IBW 98 [place]/Adjusted Body Weight 118#/53.6 kg Recent Weight Change No Weight Status Underweight Last BM Sep 12, 2021 Food Allergies No Usual Diet At Home Regular per pt report and nursing nutritional assessment Skin Integrity Comment: Vic scale: 20 on 09/26/21; no PIs noted per EMR review Current % PO 70% average x8 meal records Estimated Energy Expenditure (kcals/day) 4232-8314 (30-35 kcal/kg CBW d/t COPD) Estimated Protein Required (g/day) 70-107 (1.3-2 gm/kg CBW d/t COPD) Estimated Fluid Required (l/day) 1.6-1.9 (1 ml/kcal/day for maintenance) Problem/Etiology/Signs/Symptoms Suboptimal nutritional intakes R/T fair appetite AEB PO intake records *on-going. Expected Outcomes/Goals - Monitor appetite and PO intakes w/ goal of pt meeting >75% of estimated nutritional needs, labs trending WNL, normal GI function, and skin integrity/wt maintenance Dietitian Recommendations * Continue Mechanical soft diet * Encourage increase PO intakes * Chocolate Ensure Enlive ONS daily Follow Up Mod Risk: F/U in 3-5 days Follow Up By 10/01/21
[2021-09-26] MEDS: cefTRIAXone 1 GM in D5W 50 ML IV SCH (16:22)
--- NOTE | 2021-09-26 19:07 | NUR ---
END OF SHIFT REPORT GIVEN TO EMILY VERA. THANK YOU
--- NOTE | 2021-09-26 19:30 | NUR ---
Opening note Received report from day shift. Pt is awake a/o x3 bed receiving breathing tx from RT. No s/s of respiratory distress. IV site intact and patent saline lock. Fall and safety precautions in place with bed in lowest position and call light within reach
[2021-09-26] MEDS: TEMAZEPAM 15 MG CAPSULE PO PRN (21:51)
[2021-09-27] VITALS: BP_SYST 122
--- NOTE | 2021-09-27 00:15 | NUR ---
Rounds Pt lying in bed, eyes closed. Breathing even and unlabored. No s/s of acute distress. Fall and safety checks in place
[2021-09-27] MEDS: IPRATROPIUM/ALBUTEROL SULFATE 3 ML AMPUL.NEB (DUONEB) INH SCH ×5 (03:20→19:53)
[2021-09-27] MEDS: BUDESONIDE 0.5 MG/2 ML AMPUL.NEB INH SCH ×3 (03:23→19:53)
[2021-09-27 06:41] LABS: BASOPHILS % (AUTO) 0.1 % (0.0-2.0); HEMATOCRIT 33.4 % (36-48); HEMOGLOBIN 11.1 g/dL (12.0-16.0); LYMPHOCYTES # (AUTO) 0.6 K/uL (1.0-5.5); LYMPHOCYTES % (AUTO) 3.7 % (20.5-51.5); MEAN CORPUSCULAR HEMOGLOBIN 29 pg (27-31); MEAN CORPUSCULAR HGB CONC 33 % (32-36); MEAN CORPUSCULAR VOLUME 87 fL (79.0-98.0); MONOCYTES # (AUTO) 0.8 K/uL (0.0-1.0); MONOCYTES % (AUTO) 5.1 % (1.7-9.3); NEUTROPHILS # (AUTO) 14.7 K/uL (1.8-7.7); PLATELET COUNT (AUTO) 274 K/uL (130-430); RED BLOOD CELL COUNT(AUTO) 3.83 MIL/uL (4.2-6.2); RED CELL DISTRIBUTION WIDTH 16.9 % (9.0-15.0); WHITE BLOOD COUNT (AUTO) 16.1 K/uL (4.8-10.8)
--- NOTE | 2021-09-27 06:56 | NUR ---
PHYSICAL THERAPY CO-SIGN The Physical Therapy Progress Notes documented by Vertical Mill Operator have been reviewed. Reviewed/Co-Signed by: Lewis Yañez Documentation Done by: KARLY DEL ANGEL PTA Addendum: 09/27/21 at 0656 by Lewis Yañez PT Amended: Links added.
--- NOTE | 2021-09-27 07:07 | NUR ---
Closing note Pt lying in bed, eyes closed. No s/s of respiratory distress. Breathing even and unlabored. IV site intact and patent saline lock. All needs met throughout shift. Fall and safety precautions in place with bed in lowest position and call light within reach.
--- NOTE | 2021-09-27 07:40 | NUR ---
RECEIVED PATIENT FROM PM NURSE, RESTING COMFORTABLY IN BED, NO S/SX OF DISTRESS OR DISCOMFORT OBSERVED, WILL ASSUME ALL CARE OF PATIENT
[2021-09-27] MEDS ORDERED: CHOLECALCIFEROL (VITAMIN D3) 2,000 UNIT TABLET PO SCH (09:00)
[2021-09-27] MEDS: AZITHROMYCIN 250 MG TABLET PO SCH (09:08)
[2021-09-27] MEDS: MEGESTROL ACETATE 400 MG/10 ML UDC PO SCH (09:08)
[2021-09-27] MEDS: SERTRALINE HCL 50 MG TABLET PO SCH (09:08)
[2021-09-27] MEDS: DOCUSATE SODIUM 100 MG CAPSULE PO SCH (09:08)
[2021-09-27] MEDS: CHOLECALCIFEROL (VITAMIN D3) 2,000 UNIT TABLET PO SCH (09:08)
[2021-09-27] MEDS: OLANZapine 2.5 MG TABLET PO SCH ×2 (09:08→21:09)
[2021-09-27] MEDS: MULTIVITS,CA,MINERALS/IRON/FA 1 TABLET PO SCH (09:09)
[2021-09-27] MEDS: LACTOBACILLUS RHAMNOSUS GG 1 CAP CAPSULE PO SCH ×2 (09:09→21:10)
[2021-09-27] MEDS: POLYETHYLENE GLYCOL 3350, 17 GM/ POWD.PACK PO SCH (09:09)
[2021-09-27] MEDS: predniSONE 20 MG TABLET PO SCH ×3 (09:09→21:09)
[2021-09-27] MEDS: guaiFENesin ER 600 MG TAB PO SCH ×2 (09:09→21:10)
[2021-09-27] MEDS: PANTOPRAZOLE SODIUM 40 MG TAB PO SCH (09:09)
[2021-09-27] MEDS: MAGNESIUM OXIDE 400 MG TABLET PO SCH (09:09)
[2021-09-27 09:35] LABS: ALBUMIN 2.6 g/dL (3.4-4.8); CALCIUM 8.5 mg/dL (8.4-11.0); CREATININE 0.52 mg/dL (0.55-1.30); POTASSIUM 4.3 mmol/L (3.5-5.1); TOTAL BILIRUBIN 0.3 mg/dL (0.0-1.0)
[2021-09-27] MEDS: IPRATROPIUM/ALBUTEROL SULFATE 3 ML AMPUL.NEB (DUONEB) INH PRN (10:38)
[2021-09-27 12:00] VITALS: BP_SYST 126
[2021-09-27] MEDS: INSULIN REGULAR, HUMAN 100 UNITS/ML, 10 ML VIAL (humuLIN R) SUBCUT PRN ×2 (12:10→21:28)
--- NOTE | 2021-09-27 14:00 | NUR ---
PATIENT C/O SOB, REQUEST BREATHING TX
[2021-09-27 14:38] LABS: NEUTROPHILS % (AUTO) 91.1 % (40.0-70.0)
[2021-09-27] MEDS: MONTELUKAST 10 MG TABLET PO SCH (17:16)
[2021-09-27] MEDS: cefTRIAXone 1 GM in D5W 50 ML IV SCH (17:17)
[2021-09-27 18:33] VITALS: BP_SYST 130
[2021-09-27 20:00] VITALS: BP_SYST 128
[2021-09-27] MEDS: HYDROcodone/ACETAMIN 5-325 MG TAB (NORCO/ VICODIN) PO PRN (21:19)
[2021-09-28] MEDS: IPRATROPIUM/ALBUTEROL SULFATE 3 ML AMPUL.NEB (DUONEB) INH SCH ×4 (01:00→19:37)
[2021-09-28 04:00] VITALS: BP_SYST 132
[2021-09-28] MEDS: INSULIN REGULAR, HUMAN 100 UNITS/ML, 10 ML VIAL (humuLIN R) SUBCUT PRN ×3 (06:17→17:33)
--- NOTE | 2021-09-28 07:30 | NUR ---
OPENING NOTES: 0730AM: PATIENT IS RESTING IN BED WATCHING TV. A/A/0x4 W/ EPISODE OF FORGETFULNESS. NOTED CONSTANT USING CALL LIGHTS FOR BREATHING TX, COFFEE/TEA, AND OTHER NON-NURSING MEDICAL RELATED DUTIES. PATIENT SEEMS TO HAVE EPISODE OF FORGETFULNESS AND WILL ASK THE SAME QUESTIONS OVER AGAIN THROUGHOUT THE SHIFT. IN REGARDS TO BREATHING TREATMENT, 02 SAT IS 97% AND ABOVE. HOWEVER, PATIENT WILL BEG FOR BREATHING TREATMENT WHEN IT WAS ALREADY GIVEN OR DOES NOT NEED IT. EXPLAINED POC TO PATIENT AND SHE VERBALIZED UNDERSTANDING. NO DISTRESS OR PAIN NOTED AT THIS TIME. CALL LIGHT WITH REACH. STABLE CONDITION AT THIS TIME.
--- NOTE | 2021-09-28 07:55 | NUR ---
PHYSICAL THERAPY CO-SIGN The Physical Therapy Progress Notes documented by Merry Go Round Operator have been reviewed. Reviewed/Co-Signed by: Lewis Yañez Documentation Done by: KARLY DEL ANGEL PTA Addendum: 09/28/21 at 0755 by Lewis Yañez PT Amended: Links added.
[2021-09-28 08:00] VITALS: BP_SYST 157
[2021-09-28] MEDS: BUDESONIDE 0.5 MG/2 ML AMPUL.NEB INH SCH ×2 (08:29→19:37)
[2021-09-28] MEDS: POLYETHYLENE GLYCOL 3350, 17 GM/ POWD.PACK PO SCH (09:10)
[2021-09-28] MEDS: PANTOPRAZOLE SODIUM 40 MG TAB PO SCH (09:11)
[2021-09-28] MEDS: guaiFENesin ER 600 MG TAB PO SCH ×2 (09:11→20:52)
[2021-09-28] MEDS: LACTOBACILLUS RHAMNOSUS GG 1 CAP CAPSULE PO SCH ×2 (09:11→20:52)
[2021-09-28] MEDS: predniSONE 20 MG TABLET PO SCH ×2 (09:12→20:53)
[2021-09-28] MEDS: OLANZapine 2.5 MG TABLET PO SCH ×2 (09:12→20:52)
[2021-09-28] MEDS: SERTRALINE HCL 50 MG TABLET PO SCH (09:12)
[2021-09-28] MEDS: MULTIVITS,CA,MINERALS/IRON/FA 1 TABLET PO SCH (09:12)
[2021-09-28] MEDS: CHOLECALCIFEROL (VITAMIN D3) 2,000 UNIT TABLET PO SCH (09:13)
[2021-09-28] MEDS: MAGNESIUM OXIDE 400 MG TABLET PO SCH (09:13)
[2021-09-28] MEDS: MEGESTROL ACETATE 400 MG/10 ML UDC PO SCH (09:13)
[2021-09-28] MEDS: DOCUSATE SODIUM 100 MG CAPSULE PO SCH (09:13)
[2021-09-28] MEDS: IPRATROPIUM/ALBUTEROL SULFATE 3 ML AMPUL.NEB (DUONEB) INH PRN ×2 (11:30→16:10)
--- NOTE | 2021-09-28 14:20 | NUR ---
TELE PSYCH ANXIETY REQUESTED @5250
[2021-09-28 16:00] VITALS: BP_SYST 136
[2021-09-28] MEDS: cefTRIAXone 1 GM in D5W 50 ML IV SCH (17:14)
[2021-09-28] MEDS: MONTELUKAST 10 MG TABLET PO SCH (17:14)
--- NOTE | 2021-09-28 17:45 | NUR ---
IV TO THE R WRIST: LAC IV LEAKING. IV REMOVED. IV CATH INTACT WHEN REMOVED. COVERED SITE WITH GAUZE AND SECURE WITH TAPE. NEW IV INSERTED TO THE RW 24G WITH GOOD BLOOD RETURN AND SECURE WITH TEGADERM.
--- NOTE | 2021-09-28 18:30 | NUR ---
CLOSING NOTES: PATIENT IS RESTING IN BED QUIETLY, WATCHING TV. NO DISTRESS OR PAIN NOTED AT THIS TIME. CALL LIGHT WITHIN REACH. STABLE CONDITION AT THIS TIME. ALL NEEDS MET.
[2021-09-28 20:00] VITALS: BP_SYST 138
[2021-09-29] VITALS: BP_SYST 132
[2021-09-29] MEDS: IPRATROPIUM/ALBUTEROL SULFATE 3 ML AMPUL.NEB (DUONEB) INH SCH ×4 (01:05→22:15)
[2021-09-29] MEDS: HYDROcodone/ACETAMIN 5-325 MG TAB (NORCO/ VICODIN) PO PRN ×2 (01:33→20:23)
[2021-09-29 04:24] VITALS: BP_SYST 130
--- NOTE | 2021-09-29 07:30 | NUR ---
OPENING NOTES: 0730AM: PATIENT IS RESTING IN BED WATCHING TV. A/A/0x4 W/ EPISODE OF FORGETFULNESS. NOTED CONSTANT USING CALL LIGHTS FOR BREATHING TX, COFFEE/TEA, AND OTHER NON-NURSING MEDICAL RELATED DUTIES. PATIENT SEEMS TO HAVE EPISODE OF FORGETFULNESS AND WILL ASK THE SAME QUESTIONS OVER AGAIN THROUGHOUT THE SHIFT. IN REGARDS TO BREATHING TREATMENT, 02 SAT IS 96% AND ABOVE. HOWEVER, PATIENT WILL BEG FOR BREATHING TREATMENT WHEN IT WAS ALREADY GIVEN OR DOES NOT NEED IT. EXPLAINED POC TO PATIENT AND SHE VERBALIZED UNDERSTANDING. NO DISTRESS OR PAIN NOTED AT THIS TIME. CALL LIGHT WITH REACH. STABLE CONDITION AT THIS TIME.
[2021-09-29] MEDS: BUDESONIDE 0.5 MG/2 ML AMPUL.NEB INH SCH ×2 (07:58→22:16)
--- NOTE | 2021-09-29 08:30 | NUR ---
IV TO THE RH: NOTED NO IV PRESENT. PATIENT DOES NOT SEEM TO KNOW WHAT HAPPENED. NEW IV INSERTED TO THE RH 24G WITH GOOD BLOOD RETURN AND SECURE WITH TEGADERM.
[2021-09-29] MEDS: OLANZapine 2.5 MG TABLET PO SCH ×2 (09:12→20:23)
[2021-09-29] MEDS: MEGESTROL ACETATE 400 MG/10 ML UDC PO SCH (09:12)
[2021-09-29] MEDS: POLYETHYLENE GLYCOL 3350, 17 GM/ POWD.PACK PO SCH (09:12)
[2021-09-29] MEDS: LACTOBACILLUS RHAMNOSUS GG 1 CAP CAPSULE PO SCH ×2 (09:13→20:22)
[2021-09-29] MEDS: DOCUSATE SODIUM 100 MG CAPSULE PO SCH (09:13)
[2021-09-29] MEDS: predniSONE 20 MG TABLET PO SCH ×2 (09:13→20:21)
[2021-09-29] MEDS: PANTOPRAZOLE SODIUM 40 MG TAB PO SCH (09:13)
[2021-09-29] MEDS: MULTIVITS,CA,MINERALS/IRON/FA 1 TABLET PO SCH (09:13)
[2021-09-29] MEDS: guaiFENesin ER 600 MG TAB PO SCH ×2 (09:14→20:22)
[2021-09-29] MEDS: CHOLECALCIFEROL (VITAMIN D3) 2,000 UNIT TABLET PO SCH (09:14)
[2021-09-29] MEDS: MAGNESIUM OXIDE 400 MG TABLET PO SCH (09:14)
[2021-09-29] MEDS: SERTRALINE HCL 50 MG TABLET PO SCH (09:14)
[2021-09-29 09:19] VITALS: BP_SYST 173
--- NOTE | 2021-09-29 17:00 | NUR ---
TELE PSYCH: TELE PSYCH MD CALLED AND SPOKE WITH THE PATIENT. PER MD, SHE WILL CHANGE THE ORDER FOR VISTARIL DUE TO POSSIBLE CAUSE OF CONFUSION OF THE PATIENT. WILL WAIT FOR MD TO FAX ORDER AND NOTES.
[2021-09-29] MEDS: MONTELUKAST 10 MG TABLET PO SCH (18:06)
[2021-09-29 18:50] VITALS: BP_SYST 159
[2021-09-29 20:00] VITALS: BP_SYST 173
[2021-09-29] MEDS: cloNIDine HCL 0.1 MG TABLET PO PRN (20:24)
[2021-09-29] MEDS: INSULIN REGULAR, HUMAN 100 UNITS/ML, 10 ML VIAL (humuLIN R) SUBCUT PRN (20:29)
[2021-09-29 22:00] VITALS: BP_SYST 165
[2021-09-30] VITALS: BP_SYST 121
[2021-09-30] MEDS: IPRATROPIUM/ALBUTEROL SULFATE 3 ML AMPUL.NEB (DUONEB) INH SCH ×4 (01:21→21:43)
[2021-09-30 04:07] VITALS: BP_SYST 136
[2021-09-30] MEDS: BUDESONIDE 0.5 MG/2 ML AMPUL.NEB INH SCH ×2 (07:42→21:44)
[2021-09-30 09:25] VITALS: BP_SYST 152
[2021-09-30] MEDS: guaiFENesin ER 600 MG TAB PO SCH ×2 (09:25→20:18)
[2021-09-30] MEDS: MAGNESIUM OXIDE 400 MG TABLET PO SCH (09:25)
[2021-09-30] MEDS: MULTIVITS,CA,MINERALS/IRON/FA 1 TABLET PO SCH (09:25)
[2021-09-30] MEDS: LACTOBACILLUS RHAMNOSUS GG 1 CAP CAPSULE PO SCH ×2 (09:25→20:18)
[2021-09-30] MEDS: SERTRALINE HCL 50 MG TABLET PO SCH (09:25)
--- NOTE | 2021-09-30 09:25 | NUR ---
Scheduled medications given per order. Patient stable; resting comfortably in bed at this time with no distress noted at this time.
[2021-09-30] MEDS: DOCUSATE SODIUM 100 MG CAPSULE PO SCH (09:26)
[2021-09-30] MEDS: predniSONE 20 MG TABLET PO SCH ×2 (09:26→20:18)
[2021-09-30] MEDS: CHOLECALCIFEROL (VITAMIN D3) 2,000 UNIT TABLET PO SCH (09:26)
[2021-09-30] MEDS: OLANZapine 2.5 MG TABLET PO SCH ×2 (09:27→20:17)
[2021-09-30] MEDS: POLYETHYLENE GLYCOL 3350, 17 GM/ POWD.PACK PO SCH (09:27)
[2021-09-30] MEDS: MEGESTROL ACETATE 400 MG/10 ML UDC PO SCH (09:27)
[2021-09-30] MEDS: PANTOPRAZOLE SODIUM 40 MG TAB PO SCH (09:27)
--- NOTE | 2021-09-30 10:37 | NUR ---
Discharge Planning: DCP followed up with to pt referral to: [facility] #[phone]-per [facility] no beds. [facility]-#[phone]-per Aline only taking covid positive. [facility]-#No termite control service representative. DCP called: Armando Ramirez-#[phone]-per [facility] no termite control service representative. [facility]-[phone]-per Arianna no fdc beds. [address] [phone]-per marcy no termite control service representative [phone][facility]per Aries contracted with [facility], but has issues withBC not paying-declined patient. [facility]-per Franky full to capacity on fdc. [facility]-[phone]-per Uri no fdc beds at this time. DCP faxed pt referral to: [facility]ito Zuluaga-#[phone] [facility]-#[phone] [facility]#[phone] DCP to follow up Addendum: 09/30/21 at 1659 by Rebecca SAWYER DCP spoke to Debi at [facility]- [place] [phone] opt#1, made her aware no accepting SNF, faxing to the last 3 [facility]ito Zuluaga-#[phone] [facility]-#[phone] [place] Nick Araujo#[phone] made her aware CM will call if no accepting.
--- NOTE | 2021-09-30 11:24 | NUR ---
Patient ambulated to bathroom and back to bed. Checked blood sugar: 132 mg/dl - no coverage required. Patient stable at this time.
[2021-09-30 11:34] VITALS: BP_SYST 141
[2021-09-30] MEDS ORDERED: traMADol HCL HCL 50 MG TABLET (ULTRAM) PO PRN (12:00)
[2021-09-30] MEDS ORDERED: HYDROcodone/ACETAMIN 5-325 MG TAB (NORCO/ VICODIN) PO PRN (12:15)
--- NOTE | 2021-09-30 12:30 | NUR ---
Patient resting in bed; requested breathing treatment. RT was paged to room. Addendum: 09/30/21 at 1238 by Shaylee Travis RN Scheduled medication given per order. Patient stable.
--- NOTE | 2021-09-30 14:00 | NUR ---
Patient stable; asleep at this time with no distress noted.
--- NOTE | 2021-09-30 16:00 | NUR ---
Patient resting quietly in bed with eyes closed at this time. Patient stable.
[2021-09-30 16:30] VITALS: BP_SYST 134
[2021-09-30] MEDS: MONTELUKAST 10 MG TABLET PO SCH (17:18)
--- NOTE | 2021-09-30 17:19 | NUR ---
Scheduled medications given per order. Checked blood sugar: 243 mg/dl - will cover per sliding scale. Addendum: 09/30/21 at 1728 by Shaylee Travis RN Covered per sliding scale: 4 units
[2021-09-30] MEDS: INSULIN REGULAR, HUMAN 100 UNITS/ML, 10 ML VIAL (humuLIN R) SUBCUT PRN (17:26)
--- NOTE | 2021-09-30 18:30 | NUR ---
Patient resting comfortably in bed at this time; stable throughout shift.
[2021-09-30 20:00] VITALS: BP_SYST 153
[2021-09-30] MEDS: TEMAZEPAM 15 MG CAPSULE PO PRN (21:33)
[2021-10-01 00:46] VITALS: BP_SYST 155
[2021-10-01] MEDS: IPRATROPIUM/ALBUTEROL SULFATE 3 ML AMPUL.NEB (DUONEB) INH SCH ×4 (01:00→20:48)
[2021-10-01] MEDS: BUDESONIDE 0.5 MG/2 ML AMPUL.NEB INH SCH ×2 (07:00→20:48)
[2021-10-01 07:28] LABS: BASOPHILS % (AUTO) 0.3 % (0.0-2.0); EOSINOPHILS % (AUTO) 0.1 % (0.0-4.0); HEMATOCRIT 35.1 % (36-48); LYMPHOCYTES # (AUTO) 0.5 K/uL (1.0-5.5); LYMPHOCYTES % (AUTO) 4.5 % (20.5-51.5); MEAN CORPUSCULAR HEMOGLOBIN 30 pg (27-31); MEAN CORPUSCULAR HGB CONC 34 % (32-36); MEAN CORPUSCULAR VOLUME 87 fL (79.0-98.0); MONOCYTES # (AUTO) 0.4 K/uL (0.0-1.0); MONOCYTES % (AUTO) 3.7 % (1.7-9.3); NEUTROPHILS # (AUTO) 10.8 K/uL (1.8-7.7); NEUTROPHILS % (AUTO) 91.4 % (40.0-70.0); PLATELET COUNT (AUTO) 287 K/uL (130-430); RED BLOOD CELL COUNT(AUTO) 4.06 MIL/uL (4.2-6.2); RED CELL DISTRIBUTION WIDTH 17.1 % (9.0-15.0); WHITE BLOOD COUNT (AUTO) 11.8 K/uL (4.8-10.8)
[2021-10-01 08:00] VITALS: BP_SYST 159
[2021-10-01] MEDS: guaiFENesin ER 600 MG TAB PO SCH ×2 (09:00→20:43)
[2021-10-01] MEDS: SERTRALINE HCL 50 MG TABLET PO SCH (09:01)
[2021-10-01] MEDS: OLANZapine 2.5 MG TABLET PO SCH ×2 (09:01→20:43)
[2021-10-01] MEDS: CHOLECALCIFEROL (VITAMIN D3) 2,000 UNIT TABLET PO SCH (09:01)
[2021-10-01] MEDS: POLYETHYLENE GLYCOL 3350, 17 GM/ POWD.PACK PO SCH (09:01)
[2021-10-01] MEDS: PANTOPRAZOLE SODIUM 40 MG TAB PO SCH (09:01)
[2021-10-01] MEDS: MEGESTROL ACETATE 400 MG/10 ML UDC PO SCH (09:01)
[2021-10-01] MEDS: LACTOBACILLUS RHAMNOSUS GG 1 CAP CAPSULE PO SCH ×2 (09:01→20:43)
[2021-10-01] MEDS: predniSONE 20 MG TABLET PO SCH ×2 (09:02→20:51)
[2021-10-01] MEDS: DOCUSATE SODIUM 100 MG CAPSULE PO SCH (09:03)
[2021-10-01] MEDS: MAGNESIUM OXIDE 400 MG TABLET PO SCH (09:03)
[2021-10-01] MEDS: MULTIVITS,CA,MINERALS/IRON/FA 1 TABLET PO SCH (09:10)
[2021-10-01 09:14] LABS: ALBUMIN 2.6 g/dL (3.4-4.8); CALCIUM 8.2 mg/dL (8.4-11.0); CREATININE 0.57 mg/dL (0.55-1.30); POTASSIUM 4.4 mmol/L (3.5-5.1); TOTAL BILIRUBIN 0.4 mg/dL (0.0-1.0)
[2021-10-01] MEDS: IPRATROPIUM/ALBUTEROL SULFATE 3 ML AMPUL.NEB (DUONEB) INH PRN ×3 (11:24→23:25)
[2021-10-01] MEDS: INSULIN REGULAR, HUMAN 100 UNITS/ML, 10 ML VIAL (humuLIN R) SUBCUT PRN ×3 (12:26→20:47)
[2021-10-01 12:49] VITALS: BP_SYST 165
[2021-10-01] MEDS ORDERED: MEGE400O4 PO (14:29)
[2021-10-01] MEDS ORDERED: SERT-436 PO (14:29)
[2021-10-01] MEDS ORDERED: BLOO-1360 XX (14:29)
[2021-10-01] MEDS ORDERED: VIS25 PO (14:29)
[2021-10-01] MEDS ORDERED: IPRA3AMP9 INH (14:29)
[2021-10-01] MEDS ORDERED: MAGN400T10 PO (14:29)
[2021-10-01] MEDS ORDERED: MONT-40 PO (14:29)
[2021-10-01] MEDS ORDERED: OLAN2.5T3 PO (14:29)
[2021-10-01] MEDS ORDERED: PRED20TA PO (14:29)
[2021-10-01] MEDS ORDERED: LACT1CAP57 PO (14:29)
[2021-10-01 15:19] VITALS: BP_SYST 147
--- NOTE | 2021-10-01 15:59 | NUR ---
Nutrition F/U Admitting Diagnosis COPD Reviewed Pertinent Medical/Surgical Hx Medical Record Patient Medical History Comment: PMH: COPD and depression per physician notes Pt also found w/ acute hypoxic respiratory failure, COPD exacerbation, acute bronchitis, pulmonary fibrosis, anemia, anxiety and depression, iron-deficiency anemia, and moderate protein malnutrition per physician notes Subjective Information: RD rounded to pt's bedside this afternoon. Pt reported "perfect" appetite. No c/o N/V/C/D. Pt reported LBM was this morning. Pt requested chocolate puddings w/ meals. RD noted in [employer]. Per EMR review, pt still has some SOB and cough; active MD orders for D/C home; appetite appears fair; active bowel sounds; on 2 L O2 via NC. Current diet remains adequate/appropriate. Current Diet Order/Nutrition Suppot: Mechanical soft x19 days Patient/Significant Other Able To Verbalize Education Provided Not Indicated Pertinent Medications: prednisone, mag oxide, megace, colace, protonix, theragran, VIT D3, culturelle, miralax, zofran, SSI Pertinent Labs: BG 139 H, POC BG 218 H, HgA1c 5.5 W, WBC 11.8 H Height (Feet) 5 feet Height (Inches) 4.00 inches Weight (Pounds) 118 pounds -- stable since 09/16 Patient Weight 53.524 kg Body Mass Index 20.25 kg/m2 Usual Weight 118 lbs %UBW 100 %IBW 98 [place]/Adjusted Body Weight 118#/53.6 kg Recent Weight Change No Weight Status Underweight Food Allergies No Usual Diet At Home Regular per pt report and nursing nutritional assessment Skin Integrity Comment: Vic scale: 21 -- no PIs noted per EMR review Current % PO 60% average x11 meal records Estimated Energy Expenditure (kcals/day) 8519-3130 (30-35 kcal/kg CBW d/t COPD) Estimated Protein Required (g/day) 70-107 (1.3-2 gm/kg CBW d/t COPD) Estimated Fluid Required (l/day) 1.6-1.9 (1 ml/kcal/day for maintenance) Problem/Etiology/Signs/Symptoms Suboptimal nutritional intakes R/T fair appetite AEB PO intake records *Ongoing Expected Outcomes/Goals - Monitor appetite and PO intakes w/ goal of pt meeting >75% of estimated nutritional needs, labs trending WNL, normal GI function, and skin integrity/wt maintenance Dietitian Recommendations * Continue Mechanical soft diet * Encourage increase PO intakes * Puddings w/ meals TID Follow Up Low Risk: F/U in 7 days
--- NOTE | 2021-10-01 16:06 | NUR ---
Dietitian Recommendations * Continue Mechanical soft diet * Encourage increase PO intakes * Puddings w/ meals TID LP, MS, RD Please refer to Nutrition F/U for details.
[2021-10-01 16:39] VITALS: BP_SYST 163
--- NOTE | 2021-10-01 17:30 | NUR ---
Called Santiago multiple times both on his home phone [phone] and cell phone [phone] and left messages thar is ready to go home today and he could pick her up in the hospital. also tried to call santiago but is not answering the phone.
[2021-10-01] MEDS: MONTELUKAST 10 MG TABLET PO SCH (17:43)
[2021-10-01 20:00] VITALS: BP_SYST 160
[2021-10-01] MEDS: TEMAZEPAM 15 MG CAPSULE PO PRN (22:26)
[2021-10-02] VITALS: BP_SYST 140
[2021-10-02 00:01] VITALS: BP_SYST 140
[2021-10-02] MEDS: IPRATROPIUM/ALBUTEROL SULFATE 3 ML AMPUL.NEB (DUONEB) INH SCH (01:00)
[2021-10-02 08:00] VITALS: BP_SYST 169
--- NOTE | 2021-10-02 08:00 | NUR ---
Initial Notes Patient is AOx3. No s/s of distress noted. Breathing is even and nonlabored. SPo2 is 97% o 1 Lo2 via nasal cannula. Patient denies pain at this time. No SOB noted. Patient ambulatory with a steady gait. Patient s eating breakfast. Safety precautions in place and call light within reach.
[2021-10-02] MEDS: POLYETHYLENE GLYCOL 3350, 17 GM/ POWD.PACK PO SCH (09:41)
[2021-10-02] MEDS: predniSONE 20 MG TABLET PO SCH (09:41)
[2021-10-02] MEDS: MEGESTROL ACETATE 400 MG/10 ML UDC PO SCH (09:41)
[2021-10-02] MEDS: guaiFENesin ER 600 MG TAB PO SCH (09:42)
[2021-10-02] MEDS: PANTOPRAZOLE SODIUM 40 MG TAB PO SCH (09:42)
[2021-10-02] MEDS: DOCUSATE SODIUM 100 MG CAPSULE PO SCH (09:42)
[2021-10-02] MEDS: OLANZapine 2.5 MG TABLET PO SCH (09:42)
[2021-10-02] MEDS: LACTOBACILLUS RHAMNOSUS GG 1 CAP CAPSULE PO SCH (09:42)
[2021-10-02] MEDS: MULTIVITS,CA,MINERALS/IRON/FA 1 TABLET PO SCH (09:42)
[2021-10-02] MEDS: MAGNESIUM OXIDE 400 MG TABLET PO SCH (09:43)
[2021-10-02] MEDS: CHOLECALCIFEROL (VITAMIN D3) 2,000 UNIT TABLET PO SCH (09:43)
[2021-10-02] MEDS: SERTRALINE HCL 50 MG TABLET PO SCH (09:43)
--- NOTE | 2021-10-02 09:50 | NUR ---
Notes Called Brain, he will pharmacy picking tech patient within an hour.
[2021-10-02] MEDS: INSULIN REGULAR, HUMAN 100 UNITS/ML, 10 ML VIAL (humuLIN R) SUBCUT PRN (10:59)
[2021-10-02 11:05] VITALS: BP_SYST 146
[2021-10-02 11:15] VITALS: BP_SYST 146
--- NOTE | 2021-10-02 11:20 | NUR ---
Discharge patient is AOx3. Patient is ambulatory with steady gait. No s/s of distress noted. No SOB. Patient denies pain at this time. Breathing is even and nonlabored. Patient is stable to go home. Patient given medication reconciliation form and D/C instructions. Exit Care provided. Patient verbalized understanding. ID band removed. IV catheter removed, intact and dressing applied, no active bleeding. Rx of medications given. Patient educated on pain management. All belongings sent with patient.
--- NOTE | 2021-10-03 13:46 | NUR ---
dispo code 01
--- NOTE | 2021-10-04 07:44 | NUR ---
PHYSICAL THERAPY CO-SIGN The Physical Therapy Progress Notes documented by Physicians Assistant have been reviewed. Reviewed/Co-Signed by: Lewis Yañez Documentation Done by: KARLY DEL ANGEL PTA Addendum: 10/04/21 at 0745 by Lewis Yañez PT Amended: Links added.
== END 2021-10-02 13:12 | disposition home or self-care (01) | DRG 193 ==
LOC: SED 14:37 → SMU 17:59 → SIC 09-12 14:53 → STU 09-14 00:31 → SMU 09-18 11:43
PROVIDERS: ADMIT Internal Medicine; ATTEND Internal Medicine
PROC: 5A09357 Assistance with Respiratory Ventilation, Less than 24 Consecutive Hours, Continuous Positive Airway Pressure (ICD-10-PCS; principal; 2021-09-23)
PROC: 5A09357 Assistance with Respiratory Ventilation, Less than 24 Consecutive Hours, Continuous Positive Airway Pressure (ICD-10-PCS; 2021-09-24)
DX: J18.0 Bronchopneumonia, unspecified organism (principal); J96.21 Acute and chronic respiratory failure with hypoxia; J44.0 Chronic obstructive pulmonary disease with (acute) lower respiratory infection; E44.0 Moderate protein-calorie malnutrition; J44.1 Chronic obstructive pulmonary disease with (acute) exacerbation; J20.9 Acute bronchitis, unspecified; Y95 Nosocomial condition; J84.10 Pulmonary fibrosis, unspecified; F41.8 Other specified anxiety disorders; D50.9 Iron deficiency anemia, unspecified; F32.A Depression, unspecified; T38.0X5A Adverse effect of glucocorticoids and synthetic analogues, initial encounter; Z20.822 Contact with and (suspected) exposure to COVID-19; F41.9 Anxiety disorder, unspecified; Z99.81 Dependence on supplemental oxygen; Z68.20 Body mass index [BMI] 20.0-20.9, adult; Y92.89 Other specified places as the place of occurrence of the external cause
CPT/HCPCS: 36415; 36600; 71045; 71250-TC; 76376; 80048; 80053; 82607; 82803-TC; 82962; 83036; 83540; 83550; 83735; 83880; 84100; 84484; 85007; 85025; 85027; 85044; 85610-TC; 85730-TC; 87040; 87070-TC; 87081; 87205-TC; 93005; 94640; 94660; 94760; 96365; 96372; 96375; 97110-GP; 97116-GP; 97530-GP; 99285; G0378; J0696; J1030; J1650; J1815; J1956; J2405; J2916; J2930; J7060; J7512; J7613; J7626; Q0144